=== PATIENT | female | born 1940 | race Caucasian/White ===

== ENCOUNTER 2019-09-04 21:44 | Inpatient (IN) | payer MEDICARE ==
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
[2019-09-05 01:08] LABS: Appearance,Urine Clear (Clear); Bilirubin,Urine Negative (Negative); Blood,Urine Negative (Negative); Color,Urine Light Yellow; Glucose,Urine (UA) Negative (Negative); Ketones,Urine Negative (Negative); Leukocyte Esterase,Urine Negative (Negative); Nitrite,Urine Negative (Negative); PH, Urine 5.5 (5.0-8.0); Protein,Urine Negative (Negative); Specific Gravity,Urine 1.009 (1.001-1.035); Urobilinogen,Urine <2.0 mg/dL (<2.0)
[2019-09-05 01:09] LABS: Anisocytosis Slight; Basophils % (A) 0 %; Eosinophils # (A) 0.1 k/uL (0-0.7); Eosinophils % (A) 1 %; HCT 40.3 % (34.0-46.0); Hypochromasia Moderate; Lymphocytes # (A) 0.8 k/uL (1.0-4.8); Lymphocytes % (A) 10 %; MCHC 32.2 g/dL (31.0-37.0); MCV 77.8 fL (80.0-100.0); Microcytosis Slight; Monocytes # (A) 0.5 k/uL (0-1.0); Monocytes % (A) 6 %; Neutrophils # (A) 6.4 k/uL (1.3-7.7); Neutrophils % (A) 80 %; Platelet Count 296 k/uL (150-450); RBC 5.18 m/uL (3.80-5.40); RDW 16.1 % (11.5-15.5)
[2019-09-05 01:22] LABS: Calcium 9.2 mg/dL (8.4-10.2)
--- NOTE | 2019-09-05 01:53 | XR ---
EXAMINATION TYPE: XR foot complete RT DATE OF EXAM: 09/05/2019 COMPARISON: NONE HISTORY: Second digit ulcer TECHNIQUE: 4 views FINDINGS: There is large Achilles calcaneal spur. The metatarsals are intact. There is some flexion d eformity of the PIP joints of the second and third and fourth toes. There is narrowing of the first M P joint space. I see no definite focal bone destruction.. IMPRESSION: Multiple hammertoe deformity. Mild hallux valgus. No fracture. No definite sign of osteom yelitis.
[2019-09-05 02:23] LABS: Potassium 4.5 mmol/L (3.5-5.1)
[2019-09-05] MEDS ORDERED: CEPHALEXIN 500MG STARTER PACK 4 CAP BTL PO STA (02:47)
[2019-09-05] MEDS ORDERED: SODIUM CHLORIDE 0.9% 1,000 ML IV ONE (02:48)
[2019-09-05] MEDS ORDERED: MORPHINE SULFATE 2 MG/ML SYRINGE IVP STA (08:51)
[2019-09-05] MEDS ORDERED: cefTRIAXone IN SWFI 1,000 MG/10 ML SYRINGE IVP STA (08:52)
[2019-09-05] MEDS ORDERED: DILTIAZEM DRIP BOLUS FROM BAG 1 MG SOLN IV ONE (08:52)
[2019-09-05] MEDS ORDERED: ASPIRIN 325 MG TAB PO STA (08:54)
[2019-09-05] MEDS ORDERED: SODIUM CHLORIDE 0.9% 1,000 ML IV SCH (09:00)
[2019-09-05 09:30] LABS: Albumin 3.8 g/dL (3.5-5.0); Calcium 8.9 mg/dL (8.4-10.2); Magnesium 2.1 mg/dL (1.6-2.3); Potassium 3.5 mmol/L (3.5-5.1); Total Bilirubin 0.9 mg/dL (0.2-1.3); Total Protein 6.4 g/dL (6.3-8.2)
[2019-09-05] MEDS: DILTIAZEM 125 MG in SODIUM CHLORIDE 0.9% 100 ML IV SCH (09:36)
[2019-09-05 09:42] LABS: INR 1.1 (<1.2); Partial Thromboplastin Time 23.5 sec (22.0-30.0); Prothrombin Time 11.6 sec (9.0-12.0)
--- NOTE | 2019-09-05 09:43 | XR ---
EXAMINATION TYPE: XR chest 2V DATE OF EXAM: 09/05/2019 COMPARISON: NONE HISTORY: Chest pain TECHNIQUE: Frontal and lateral views of the chest are obtained. FINDINGS: There is a [id number] left pleural effusion and associated left basilar airspace di sease. Minimal pulmonary vascular congestion is seen. Cardiomediastinal silhouette is partially obscu red but appears enlarged. There is diffuse osseous demineralization. Lower thoracic compression defor mities are age-indeterminate. Finding of the diaphragms on the lateral view suggests underlying COPD. IMPRESSION: 1. Findings of mild pulmonary vascular congestion, small to moderate left pleural effusion, and cardi omegaly favor congestive heart failure. 2. Underlying COPD. 3. Age-indeterminate lower thoracic compression deformities, correlate with point tenderness as there are no priors available for comparison to determine chronicity.
[2019-09-05 09:52] LABS: Anisocytosis Slight; Basophils % (A) 0 %; Eosinophils # (A) 0.1 k/uL (0-0.7); Eosinophils % (A) 1 %; HCT 40.9 % (34.0-46.0); HGB 12.7 gm/dL (11.4-16.0); Hypochromasia Slight; Lymphocytes # (A) 0.8 k/uL (1.0-4.8); Lymphocytes % (A) 12 %; MCH 23.6 pg (25.0-35.0); MCHC 31.1 g/dL (31.0-37.0); MCV 75.9 fL (80.0-100.0); Microcytosis Slight; Monocytes # (A) 0.4 k/uL (0-1.0); Monocytes % (A) 6 %; Neutrophils # (A) 5.1 k/uL (1.3-7.7); Neutrophils % (A) 79 %; Platelet Count 237 k/uL (150-450); RBC 5.38 m/uL (3.80-5.40); RDW 16.4 % (11.5-15.5); WBC 6.5 k/uL (3.8-10.6)
[2019-09-05] MEDS ORDERED: ACETAMINOPHEN TAB 325 MG TAB PO PRN (09:52)
[2019-09-05] MEDS ORDERED: NALOXONE 0.4 MG/ML 1 ML VIAL IV PRN ×2 (09:52→12:41)
[2019-09-05] MEDS ORDERED: HEPARIN SODIUM,PORCINE 5,000 UNIT/ML 1 ML VIAL IV ONE (09:54)
[2019-09-05] MEDS ORDERED: HEPARIN SODIUM,PORCINE 5,000 UNIT/ML 1 ML VIAL IV PRN (09:54)
[2019-09-05] MEDS ORDERED: HEPARIN SOD,PORK IN 0.45% NACL 25,000 UNIT in 0.45% NACL 1 250ML.BAG IV SCH (10:00)
[2019-09-05] MEDS ORDERED: LACTULOSE 20 GM/30 ML CUP PO PRN (12:41)
[2019-09-05] MEDS ORDERED: ONDANSETRON 4 MG/2 ML VIAL IVP PRN (12:41)
[2019-09-05] MEDS ORDERED: traMADol 50 MG TAB PO PRN (12:41)
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
--- NOTE | 2019-09-05 18:00 | ECHOF ---
Referral Reason:chf MEASUREMENTS -------- HEIGHT: 165.1 cm WEIGHT: 86.2 kg BP: 119/72 IVSd: 1.3 cm (0.6 - 1.1) LVIDd: 4.8 cm (3.9 - 5.3) LVPWd: 1.3 cm (0.6 - 1.1) IVSs: 1.8 cm LVIDs: 4.1 cm LVPWs: 1.7 cm LA Diam: 4.4 cm (2.7 - 3.8) RVIDd: 3.3 cm (< 3.3) LAESV Index (A-L): 45.36 ml/m Ao Diam: 3.0 cm (2.0 - 3.7) AV Cusp: 1.1 cm (1.5 - 2.6) EPSS: 1.3 cm AV maxP.56 mmHg AV meanP.46 mmHg RAP: 5.00 mmHg RVSP: 40.86 mmHg MV EF SLOPE: 99.68 mm/s (70 - 150) MV EXCURSION: 17.01 mm (> 18.000) FINDINGS -------- Atrial fibrillation. This was a technically adequate study. The left ventricular size is normal. There is mild concentric left ventricular hypertrophy. Overa ll left ventricular systolic function is moderate-severely impaired with, an EF between 30 - 35 %. The right ventricle is mildly enlarged. LA is severely dilated >40 ml/m2 The right atrium is normal in size. Interatrial and interventricular septum intact. There is mild to moderate aortic valve sclerosis. There is mild aortic regurgitation. There is mi ld aortic stenosis present. Peak/mean gradient across the Aortic Valve is 17.56mmHg / 10.46mmHg. The mitral valve leaflets are moderately thickened. Moderate mitral annular calcification present. Mild mitral regurgitation is present. Mild tricuspid regurgitation present. There is mild pulmonary hypertension. The right ventricular systolic pressure, as measured by Doppler, is 40.86mmHg. The pulmonic valve was not well visualized. The aortic root size is normal. Normal inferior vena cava with normal inspiratory collapse consistent with estimated right atrial pre ssure of 5 mmHg. The inferior vena cava is mildly dilated. There is no pericardial effusion. CONCLUSIONS -------- 1. Atrial fibrillation. 2. This was a technically adequate study. 3. The left ventricular size is normal. 4. There is mild concentric left ventricular hypertrophy. 5. Overall left ventricular systolic function is moderate-severely impaired with, an EF between 30 - 35 %. 6. The right ventricle is mildly enlarged. 7. LA is severely dilated >40 ml/m2 8. The right atrium is normal in size. 9. Interatrial and interventricular septum intact. 10. There is mild to moderate aortic valve sclerosis. 11. There is mild aortic regurgitation. 12. There is mild aortic stenosis present. 13. Peak/mean gradient across the Aortic Valve is 17.56mmHg / 10.46mmHg. 14. The mitral valve leaflets are moderately thickened. 15. Moderate mitral annular calcification present. 16. Mild mitral regurgitation is present. 17. Mild tricuspid regurgitation present. 18. There is mild pulmonary hypertension. 19. The right ventricular systolic pressure, as measured by Doppler, is 40.86mmHg. 20. The pulmonic valve was not well visualized. 21. The aortic root size is normal. 22. Normal inferior vena cava with normal inspiratory collapse consistent with estimated right atrial pressure of 5 mmHg. 23. The inferior vena cava is mildly dilated. 24. There is no pericardial effusion. FACTORY SUPERINTENDENT: Ivon Lin RDCS
[2019-09-06 08:14] LABS: Anisocytosis Slight; Basophils % (A) 0 %; Eosinophils # (A) 0.1 k/uL (0-0.7); Eosinophils % (A) 2 %; HGB 12.7 gm/dL (11.4-16.0); Hypochromasia Moderate; Lymphocytes # (A) 0.8 k/uL (1.0-4.8); Lymphocytes % (A) 14 %; MCH 23.9 pg (25.0-35.0); MCHC 30.9 g/dL (31.0-37.0); MCV 77.5 fL (80.0-100.0); Mean Platelet Volume 7.6; Microcytosis Slight; Monocytes # (A) 0.3 k/uL (0-1.0); Monocytes % (A) 6 %; Neutrophils # (A) 4.3 k/uL (1.3-7.7); Neutrophils % (A) 75 %; Platelet Count 245 k/uL (150-450); RBC 5.29 m/uL (3.80-5.40); WBC 5.8 k/uL (3.8-10.6)
[2019-09-06 08:30] LABS: Albumin 3.4 g/dL (3.5-5.0); Calcium 8.3 mg/dL (8.4-10.2); Magnesium 2.1 mg/dL (1.6-2.3); Phosphorus 3.3 mg/dL (2.5-4.5); Potassium 3.9 mmol/L (3.5-5.1); Total Bilirubin 0.6 mg/dL (0.2-1.3); Total Protein 6.1 g/dL (6.3-8.2)
[2019-09-06] MEDS: DILTIAZEM 125 MG in SODIUM CHLORIDE 0.9% 100 ML IV SCH (09:28)
[2019-09-06] MEDS: LISINOPRIL 5 MG TAB PO SCH (09:41)
[2019-09-06] MEDS: APIXABAN 2.5 MG TABLET PO SCH ×2 (09:41→20:57)
[2019-09-06] MEDS: METOPROLOL SUCCINATE (ER) 100 MG TAB.ER.24H PO SCH (09:41)
--- NOTE | 2019-09-06 10:24 | P.PN ---
Subjective Progress Note Date: 09/06/19 Principal diagnosis: SOB Patient stated that she has been having worsening chest pain and shortness of breath with activity over the past several months. 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 She is currently doing okay. Resting on the chair. No chest pain or shortness of breath currently. No fevers or chills last night. No nausea or vomiting. Objective - Vital Signs Vital signs: Vital Signs Temp 98.2 F 09/05/19 19:31 Pulse 90 09/06/19 04:00 Resp 18 09/06/19 04:00 BP 133/86 09/06/19 04:00 Pulse Ox 99 09/06/19 04:00 Intake & Output 09/05/19 09/06/19 09/06/19 18:59 06:59 18:59 Intake Total 1105 119.333 Balance 1105 119.333 Weight 86.183 kg 88.9 kg Intake: Intake, IV Titration 625 119.333 Amount Diltiazem 125 mg In 45 119.333 Sodium Chloride 0.9% 100 ml @ 5 MG/HR 5 mls/hr IV .Q24H [facility] Rx#:[id number] Heparin Sod,Pork in 0.45% 80 NaCl 25,000 unit In 0.45 % NaCl 1 250ml.bag @ 11.6 UNITS/KG/HR 9.997 mls/hr IV .Q24H [facility] Rx#: [id number] Sodium Chloride 0.9% 1, 400 000 ml @ 50 mls/hr IV . Q20H [facility] Rx#:[id number] ceFAZolin 1,000 mg In 100 Sodium Chloride 0.9% 50 ml @ 100 mls/hr IVPB Q6H [facility] Rx#:[id number] Oral 480 Other: # Voids 1 3 1 # Bowel Movements 1 1 - Exam Constitutional: No acute distress, conversant, pleasant Eyes:Anicteric sclerae, moist conjunctiva, no lid-lag, PERRLA, ENMT: Oropharynx clear, no erythema, exudates Neck: Supple, FROM, no masses, or JVD, No carotid bruits, No thyromegaly Lungs: Clear to auscultation, Clear to percussion, Normal respiratory effort, no accessory muscle use Cardiovascular: tachycadic, irregular, No murmurs, gallops, or rubs, No peripheral edema Abdominal: Soft, Nontender, no guarding, rebound or rigidity, Normoactive bowel sounds, No hepatomegaly, No splenomegaly, No palpable mass Skin: Normal temperature, tone, texture, turgor, no induration, No subcutaneous nodules, Bilateral lower extremity skin changes consistent with venous stasis dermtatitis. There is mild erythema to the right lower leg. Small pressure wound to the distal tip of the right second toe. Skin is otherwise pink warm and dry. Cap refills less than 3 seconds. Pedal post tibial pulses 2+ and equal bilaterally. Extremities: No digital cyanosis, No clubbing, Pedal pulses intact and symmetri alonzo, Radial pulses intact and symmetrical, No calf tenderness Psychiatric: Alert and oriented to person, place and time, appropriate affect, intact judgement Neuro: Muscles Strength 5/5 in all 4 extremities, Sensation to light touch grossly present throughout, Cranial nerves II-XII grossly intact, no focal sensory deficits - Labs CBC & Chem 7: 09/06/19 07:16 09/06/19 07:16 Labs: Abnormal Lab Results - Last 24 Hours (Table) 09/05/19 09/05/19 09/05/19 Range/Units 15:52 15:52 22:08 MCV (80.0-100.0) fL MCH (25.0-35.0) pg MCHC (31.0-37.0) g/dL RDW (11.5-15.5) % Lymphocytes # (1.0-4.8) k/uL APTT 52.0 H (22.0-30.0) sec Sodium (137-145) mmol/L BUN (7-17) mg/dL Creatinine (0.52-1.04) mg/dL Glucose (74-99) mg/dL Calcium (8.4-10.2) mg/dL Troponin I 0.056 H* 0.053 H* (0.000-0.034) ng/mL Total Protein (6.3-8.2) g/dL Albumin (3.5-5.0) g/dL 09/06/19 09/06/19 09/06/19 Range/Units 07:16 07:16 07:16 MCV 77.5 L (80.0-100.0) fL MCH 23.9 L (25.0-35.0) pg MCHC 30.9 L (31.0-37.0) g/dL RDW 16.0 H (11.5-15.5) % Lymphocytes # 0.8 L (1.0-4.8) k/uL APTT 46.3 H (22.0-30.0) sec Sodium 136 L (137-145) mmol/L BUN 27 H (7-17) mg/dL Creatinine 1.37 H (0.52-1.04) mg/dL Glucose 103 H (74-99) mg/dL Calcium 8.3 L (8.4-10.2) mg/dL Troponin I (0.000-0.034) ng/mL Total Protein 6.1 L (6.3-8.2) g/dL Albumin 3.4 L (3.5-5.0) g/dL Assessment and Plan Plan: Acute right lower extremity cellulitis Renal failure, unclear if acute or chronic, no baseline cr available Atrial fibrillation with rapid ventricular response Acute systolic CHF exacerbation HTN Continue ancef 1gm IV q6hrs Marked the upper edge of the celluitis D/C heparin, start eliquis, she does take that at home Will restart home metoprolol and try to wean down cardizem gtt Trops cycled, flat. Tele still with RVR. Echo showed low EF at 30% Awaiting cardio evaluation, consider starting DAVID inhibitor, aldactone.. Very high bnp, will start IV lasix, she does take lasix po at home. Anticipated discharge: 2-3 days Anticipated disposition: home
--- NOTE | 2019-09-06 12:41 | P.CRDCN ---
History of Present Illness Consult date: 09/06/19 Chief complaint: Increasing in shortness of breath History of present illness: This is a very pleasant 79-year-old female patient who is somewhat poor historian with a past medical history significant for obesity, paroxysmal atrial fibrillation, as well as hypertension, we asked to see today for further evaluation off atrial fibrillation with RVR. The patient does have baseline shortness of breath with exertion but she stated that for the last several weeks her shortness of breath has been increasing. Beside that she stated that she always does have lower extremity edema but her edema has been increasing as well as. She denies any symptoms of chest pain or chest discomfort, dizziness, heart racing, or syncope. No feeling of heart racing or fluttering. When she presented to the emergency room she was in atrial fibrillation with RVR. She stated that she was told in the past that she does have "irregular heart rhythm". As a matter of fact she is on oral anticoagulation. Subsequently the patient was started on Cardizem drip. Also she was started on Lasix IV. She underwent a chest x-ray which showed findings consistent with pulmonary vascular congestion. The BNP came in to be at 14,000. Clearly she does have severe [place] ateral lower extremity edema on physical examination. Beside that she does have diminished breathing sounds bilaterally on physical examination. During this hospital stay, she underwent an echocardiogram which revealed severe arterial myopathy with evidence of mild aortic stenosis. Currently the patient is on Cardizem IV. Beside that she is on Toprol-XL at 100 mg by mouth daily. Beside that she is on oral anticoagulation. Giving her cardiomyopathy, I am going to DC the Cardizem IV and start the patient on amiodarone with a bolus and drip and switch her to amiodarone down the line. I would continue the current dose of Toprol-XL at this point. We'll obtain her previous medical record to see if she underwent any coronary angiogram to rule out severe underlying coronary artery disease in the past. Please note that the troponin came in to be slightly elevated. The EKG showed atrial fibrillation with diffuse nonspecific ST and T wave abnormalities. Past Medical History Past Medical History: Dementia, Hyperlipidemia, Hypertension, Osteoarthritis (OA) Additional Past Medical History / Comment(s): right shoulder and back pain History of Any Multi-Drug Resistant Organisms: None Reported Past Surgical History: Orthopedic Surgery Past Psychological History: No Psychological Hx Reported Smoking Status: Never smoker Past Alcohol Use History: None Reported Past Drug Use History: None Reported - Past Family History Mother History Unknown: Yes Father History Unknown: Yes Medications and Allergies Home Medications Medication Instructions Recorded Confirmed Type Apixaban [Eliquis] 2.5 mg PO BID 09/05/19 09/05/19 History Cephalexin [Keflex] 500 mg PO Q6HR #40 cap 09/05/19 Rx Furosemide [Lasix] 40 mg PO AC-BID 09/05/19 09/05/19 History Lisinopril [Zestril] 5 mg PO DAILY 09/05/19 09/05/19 History Metoprolol Succinate [Toprol XL] 100 mg PO DAILY 09/05/19 09/05/19 History Allergies Allergy/AdvReac Type Severity Reaction Status Date / Time No Known Allergies Allergy Verified 09/05/19 19:13 Physical Exam Vitals: Vital Signs Temp Pulse Resp BP Pulse Ox 09/06/19 04:00 90 18 133/86 99 09/06/19 00:00 100 16 126/72 96 09/05/19 19:31 98.2 F 107 H 18 136/67 97 09/05/19 17:55 97.7 F 113 H 18 144/81 95 09/05/19 16:00 97.6 F 112 H 20 110/71 99 Intake and Output 09/05/19 09/06/19 09/06/19 22:59 06:59 14:59 Intake Total 1105 119.333 Balance 1105 119.333 Intake: Intake, IV Titration 625 119.333 Amount Diltiazem 125 mg In 45 119.333 Sodium Chloride 0.9% 100 ml @ 5 MG/HR 5 mls/hr IV .Q24H [facility] Rx#:[id number] Heparin Sod,Pork in 0.45% 80 NaCl 25,000 unit In 0.45 % NaCl 1 250ml.bag @ 11.6 UNITS/KG/HR 9.997 mls/hr IV .Q24H [facility] Rx#: [id number] Sodium Chloride 0.9% 1, 400 000 ml @ 50 mls/hr IV . Q20H [facility] Rx#:[id number] ceFAZolin 1,000 mg In 100 Sodium Chloride 0.9% 50 ml @ 100 mls/hr IVPB Q6H [facility] Rx#:[id number] Oral 480 Other: # Voids 1 3 1 # Bowel Movements 1 Weight 86.183 kg 88.9 kg - Constitutional General appearance: no acute distress - Respiratory Respiratory: bilateral: diminished - Cardiovascular Rhythm: irregularly irregular Heart sounds: normal: S1, S2 Abnormal Heart Sounds: systolic murmur Results 09/06/19 07:16 09/06/19 07:16 Cardiac Enzymes 09/05/19 09/05/19 09/06/19 Range/Units 15:52 22:08 07:16 AST 19 (14-36) U/L Troponin I 0.056 H* 0.053 H* (0.000-0.034) ng/mL Coagulation 09/05/19 09/06/19 Range/Units 15:52 07:16 APTT 52.0 H 46.3 H (22.0-30.0) sec CBC 09/06/19 Range/Units 07:16 WBC 5.8 (3.8-10.6) k/uL RBC 5.29 (3.80-5.40) m/uL Hgb 12.7 (11.4-16.0) gm/dL Hct 41.0 (34.0-46.0) % Plt Count 245 (150-450) k/uL Comprehensive Metabolic Panel 09/06/19 Range/Units 07:16 Sodium 136 L (137-145) mmol/L Potassium 3.9 (3.5-5.1) mmol/L Chloride 102 (98-107) mmol/L Carbon Dioxide 26 (22-30) mmol/L BUN 27 H (7-17) mg/dL Creatinine 1.37 H (0.52-1.04) mg/dL Glucose 103 H (74-99) mg/dL Calcium 8.3 L (8.4-10.2) mg/dL AST 19 (14-36) U/L ALT 15 (4-34) U/L Alkaline Phosphatase 81 (38-126) U/L Total Protein 6.1 L (6.3-8.2) g/dL Albumin 3.4 L (3.5-5.0) g/dL Current Medications Generic Name Dose Route Start Last Admin Trade Name Freq PRN Reason Stop Dose Admin Acetaminophen 650 mg 09/05/19 09:52 Tylenol Tab PO Q6HR PRN Mild Pain or Fever > 100.5 Apixaban 2.5 mg 09/06/19 09:00 09/06/19 09:41 Eliquis PO 2.5 mg BID [facility] Administration Furosemide 40 mg 09/06/19 10:30 Lasix IV Q12HR [facility] Diltiazem HCl 125 mg/ Sodium 125 mls @ 5 mls/hr 09/05/19 09:00 09/06/19 09:28 Chloride IV 5 mg/hr .Q24H [facility] 5 mls/hr Administration 5 MG/HR Cefazolin Sodium 1,000 mg/ 50 mls @ 100 mls/hr 09/05/19 14:00 09/06/19 09:38 Sodium Chloride IVPB 100 mls/hr Q6H [facility] Administration Lactulose 20 gm 09/05/19 12:41 Cephulac PO DAILY PRN Constipation Lisinopril 5 mg 09/06/19 09:00 09/06/19 09:41 Zestril PO 5 mg DAILY [facility] Administration Metoprolol Succinate 100 mg 09/06/19 09:00 09/06/19 09:41 Toprol Xl PO 100 mg DAILY [facility] Administration Naloxone HCl 0.2 mg 09/05/19 12:41 Narcan IV Q2M PRN Opioid Reversal Ondansetron HCl 4 mg 09/05/19 12:41 Zofran IVP Q8HR PRN Nausea And Vomiting Tramadol HCl 50 mg 09/05/19 12:41 Ultram PO Q6H PRN Moderate Pain Intake and Output 09/05/19 09/06/19 09/06/19 22:59 06:59 14:59 Intake Total 1105 119.333 Balance 1105 119.333 Intake: Intake, IV Titration 625 119.333 Amount Diltiazem 125 mg In 45 119.333 Sodium Chloride 0.9% 100 ml @ 5 MG/HR 5 mls/hr IV .Q24H [facility] Rx#:[id number] Heparin Sod,Pork in 0.45% 80 NaCl 25,000 unit In 0.45 % NaCl 1 250ml.bag @ 11.6 UNITS/KG/HR 9.997 mls/hr IV .Q24H [facility] Rx#: [id number] Sodium Chloride 0.9% 1, 400 000 ml @ 50 mls/hr IV . Q20H [facility] Rx#:[id number] ceFAZolin 1,000 mg In 100 Sodium Chloride 0.9% 50 ml @ 100 mls/hr IVPB Q6H [facility] Rx#:[id number] Oral 480 Other: # Voids 1 3 1 # Bowel Movements 1 Weight 86.183 kg 88.9 kg 09/06/19 07:16 09/06/19 07:16 Assessment and Plan Assessment: Assessment #1 atrial fibrillation with RVR #2 known paroxysmal atrial fibrillation #3 severe cardiomyopathy #4 mildly abnormal cardiac enzymes #5 morbid obesity #6 multiple comorbid conditions Plan #1 continue the current medical regimen #2 DC Cardizem IV and start the patient on amiodarone IV #3 continue oral anticoagulation #4 obtain her previous medical record #5 rule out severe coronary artery disease #6 follow-up with the patient Thank you for allowing us participate in her care
[2019-09-06] MEDS ORDERED: DEXTROSE 5% IN WATER 100 ML with AMIODARONE 150 MG IV ONE (14:33)
[2019-09-06] MEDS ORDERED: AMIODARONE 360 MG in DEXTROSE 5% IN WATER 200 ML IV ONE ×2 (14:33)
[2019-09-06] MEDS ORDERED: FUROSEMIDE 40 MG TAB PO SCH (17:30)
[2019-09-06] MEDS: FUROSEMIDE 10 MG/ML 4 ML VIAL IV SCH ×2 (18:28→20:55)
[2019-09-06] MEDS: AMIODARONE 300 MG in DEXTROSE 5% IN WATER 250 ML IV SCH ×2 (20:57)
[2019-09-07] MEDS: AMIODARONE 300 MG in DEXTROSE 5% IN WATER 250 ML IV SCH ×2 (07:12)
[2019-09-07 07:33] LABS: Anisocytosis Slight; Basophils % (A) 0 %; Eosinophils # (A) 0.1 k/uL (0-0.7); Eosinophils % (A) 2 %; HCT 42.8 % (34.0-46.0); Hypochromasia Marked; Lymphocytes % (A) 15 %; MCH 24.2 pg (25.0-35.0); MCHC 30.5 g/dL (31.0-37.0); MCV 79.4 fL (80.0-100.0); Mean Platelet Volume 7.5; Microcytosis Slight; Monocytes # (A) 0.5 k/uL (0-1.0); Monocytes % (A) 7 %; Neutrophils # (A) 4.9 k/uL (1.3-7.7); Neutrophils % (A) 74 %; Platelet Count 269 k/uL (150-450); RBC 5.39 m/uL (3.80-5.40); RDW 16.1 % (11.5-15.5); WBC 6.7 k/uL (3.8-10.6)
[2019-09-07 08:03] LABS: Calcium 8.8 mg/dL (8.4-10.2); Magnesium 2.3 mg/dL (1.6-2.3); Phosphorus 3.6 mg/dL (2.5-4.5); Potassium 4.7 mmol/L (3.5-5.1)
[2019-09-07] MEDS: LISINOPRIL 5 MG TAB PO SCH (08:50)
[2019-09-07] MEDS: METOPROLOL SUCCINATE (ER) 100 MG TAB.ER.24H PO SCH (08:51)
[2019-09-07] MEDS: FUROSEMIDE 10 MG/ML 4 ML VIAL IV SCH ×2 (08:51→21:50)
[2019-09-07] MEDS: APIXABAN 2.5 MG TABLET PO SCH ×2 (08:51→21:50)
--- NOTE | 2019-09-07 11:16 | P.PN ---
Subjective Progress Note Date: 09/07/19 Principal diagnosis: SOB Feeling better today, the redness and pain in her right leg is almost resolved. No significant sob while laying in bed. No chest pain. No fevers. Objective - Vital Signs Vital signs: Vital Signs Temp 97.8 F 09/07/19 08:50 Pulse 95 09/07/19 08:50 Resp 18 09/07/19 08:50 BP 141/98 09/07/19 08:50 Pulse Ox 93 L 09/07/19 08:50 Intake & Output 09/06/19 09/07/19 09/07/19 18:59 06:59 18:59 Intake Total 359.333 890 240 Output Total 900 500 Balance 359.333 -10 -260 Weight 93 kg Intake: Intake, IV Titration 119.333 450 Amount Amiodarone 300 mg In 450 Dextrose 5% in Water 250 ml @ 0.5 MG/MIN 25 mls/hr IV .Q10H [facility] Rx#: [id number] Diltiazem 125 mg In 119.333 Sodium Chloride 0.9% 100 ml @ 5 MG/HR 5 mls/hr IV .Q24H [facility] Rx#:[id number] Oral 240 440 240 Output: Urine 900 500 Other: # Voids 1 2 # Bowel Movements 1 1 - Exam Constitutional: No acute distress, conversant, pleasant Eyes:Anicteric sclerae, moist conjunctiva, no lid-lag, PERRLA, ENMT: Oropharynx clear, no erythema, exudates Neck: Supple, FROM, no masses, or JVD, No carotid bruits, No thyromegaly Lungs: Clear to auscultation, Clear to percussion, Normal respiratory effort, no accessory muscle use Cardiovascular: tachycadic, irregular, No murmurs, gallops, or rubs, No peripheral edema Abdominal: Soft, Nontender, no guarding, rebound or rigidity, Normoactive bowel sounds, No hepatomegaly, No splenomegaly, No palpable mass Skin: Normal temperature, tone, texture, turgor, no induration, No subcutaneous nodules, Bilateral lower extremity skin changes consistent with venous stasis dermtatitis. There is mild erythema to the right lower leg. Small pressure wound to the distal tip of the right second toe. Skin is otherwise pink warm and dry. Cap refills less than 3 seconds. Pedal post tibial pulses 2+ and equal bilaterally. Extremities: No digital cyanosis, No clubbing, Pedal pulses intact and symmetrical, Radial pulses intact and symmetrical, No calf tenderness Psychiatric: Alert and oriented to person, place and time, appropriate affect, intact judgement Neuro: Muscles Strength 5/5 in all 4 extremities, Sensation to light touch grossly present throughout, Cranial nerves II-XII grossly intact, no focal sensory deficits - Labs CBC & Chem 7: 09/07/19 06:50 09/07/19 06:50 Labs: Abnormal Lab Results - Last 24 Hours (Table) 09/07/19 09/07/19 Range/Units 06:50 06:50 MCV 79.4 L (80.0-100.0) fL MCH 24.2 L (25.0-35.0) pg MCHC 30.5 L (31.0-37.0) g/dL RDW 16.1 H (11.5-15.5) % Sodium 133 L (137-145) mmol/L BUN 32 H (7-17) mg/dL Creatinine 1.33 H (0.52-1.04) mg/dL Glucose 119 H (74-99) mg/dL Assessment and Plan Plan: Acute right lower extremity cellulitis Renal failure, unclear if acute or chronic, no baseline cr available Atrial fibrillation with rapid ventricular response Acute systolic CHF exacerbation, echo showed low EF at 30% HTN Continue ancef 1gm IV q6hrs, cellulitis improved. Continue eliquis Resume home metoprolol, started on amiodarone by cardioelba d/anastacia due to low EF Continue home lisinopril, Lasix IV D/W cardiology the need for further ischemia evaluation with heart cath, to better investigate low EF Continue on tele Anticipated discharge: 2-3 days Anticipated disposition: home
--- NOTE | 2019-09-07 13:46 | P.PN ---
Subjective Progress Note Date: 09/07/19 This is a very pleasant 79-year-old female patient who is somewhat poor historian with a past medical history significant for obesity, paroxysmal atrial fibrillation, as well as hypertension, we asked to see today for further evaluation off atrial fibrillation with RVR. The patient does have baseline margo rtness of breath with exertion but she stated that for the last several weeks her shortness of breath has been increasing. Beside that she stated that she always does have lower extremity edema but her edema has been increasing as well as. She denies any symptoms of chest pain or chest discomfort, dizziness, heart racing, or syncope. No feeling of heart racing or fluttering. When she presented to the emergency room she was in atrial fibrillation with RVR. She stated that she was told in the past that she does have "irregular heart rhythm". As a matter of fact she is on oral anticoagulation. Subsequently the patient was started on Cardizem drip. Also she was started on Lasix IV. She underwent a chest x-ray which showed findings consistent with pulmonary vascular congestion. The BNP came in to be at 14,000. Clearly she does have severe bilateral lower extremity edema on physical examination. Beside that she does have diminished breathing sounds bilaterally on physical examination. During this hospital stay, she underwent an echocardiogram which revealed severe arterial myopathy with evidence of mild aortic stenosis. Currently the patient is on Cardizem IV. Beside that she is on Toprol-XL at 100 mg by mouth daily. Beside that she is on oral anticoagulation. Giving her cardiomyopathy, I am going to DC the Cardizem IV and start the patient on amiodarone with a bolus and drip and switch her to amiodarone down the line. I would continue the current dose of Toprol-XL at this point. We'll obtain her previous medical record to see if she underwent any coronary angiogram to rule out severe underlying coronary artery disease in the past. Please note that the troponin came in to be slightly elevated. The EKG showed atrial fibrillation with diffuse nonspecific ST and T wave abnormalities. 09/07/2019 Patient was seen and examined this morning, continues to be on IV amiodarone, we will switch her over to oral once the 24 hours is finished. Continues to diure se on the IV Lasix. Blood pressure 140/90, heart rate in the 90s, 93% on room air. White blood cell count 6.7, hemoglobin 13, platelet count 269. Sodium 133, potassium 4.7, BUN 32, creatinine 1.3, magnesium 2.3. Echocardiogram with Doppler study showed an ejection fraction of 30-35%, patient not a candidate for any coronary procedures, we'll maximize her medications. Objective - Vital Signs Vital signs: Vital Signs Temp 97.8 F 09/07/19 08:50 Pulse 95 09/07/19 08:50 Resp 18 09/07/19 08:50 BP 141/98 09/07/19 08:50 Pulse Ox 93 L 09/07/19 08:50 Intake & Output 09/06/19 09/07/19 09/07/19 18:59 06:59 18:59 Intake Total 359.333 890 240 Output Total 900 500 Balance 359.333 -10 -260 Weight 93 kg Intake: Intake, IV Titration 119.333 450 Amount Amiodarone 300 mg In 450 Dextrose 5% in Water 250 ml @ 0.5 MG/MIN 25 mls/hr IV .Q10H [facility] Rx#: [id number] Diltiazem 125 mg In 119.333 Sodium Chloride 0.9% 100 ml @ 5 MG/HR 5 mls/hr IV .Q24H [facility] Rx#:[id number] Oral 240 440 240 Output: Urine 900 500 Other: # Voids 1 2 # Bowel Movements 1 1 - Exam Constitutional: No acute distress, conversant, pleasant Eyes:Anicteric sclerae, moist conjunctiva, no lid-lag, PERRLA, ENMT: Oropharynx clear, no erythema, exudates Neck: Supple, FROM, no masses, or JVD, No carotid bruits, No thyromegaly Lungs: Clear to auscultation, Clear to percussion, Normal respiratory effort, no accessory muscle use Cardiovascular: tachycadic, irregular, No murmurs, gallops, or rubs, No peripheral edema Abdominal: Soft, Nontender, no guarding, rebound or rigidity, Normoactive bowel sounds, No hepatomegaly, No splenomegaly, No palpable mass Skin: Normal temperature, tone, texture, turgor, no induration, No subcutaneous nodules, Bilateral lower extremity skin changes consistent with venous stasis dermtatitis. There is mild erythema to the right lower leg. Small pressure wound to the distal tip of the right second toe. Skin is otherwise pink warm and dry. Cap refills less than 3 seconds. Pedal post tibial pulses 2+ and equal bilaterally. Extremities: No digital cyanosis, No clubbing, Pedal pulses intact and symmetrical, Radial pulses intact and symmetrical, No calf tenderness Psychiatric: Alert and oriented to person, place and time, appropriate affect, i ntact judgement Neuro: Muscles Strength 5/5 in all 4 extremities, Sensation to light touch grossly present throughout, Cranial nerves II-XII grossly intact, no focal sensory deficits - Labs CBC & Chem 7: 09/07/19 06:50 09/07/19 06:50 Labs: Abnormal Lab Results - Last 24 Hours (Table) 09/07/19 09/07/19 Range/Units 06:50 06:50 MCV 79.4 L (80.0-100.0) fL MCH 24.2 L (25.0-35.0) pg MCHC 30.5 L (31.0-37.0) g/dL RDW 16.1 H (11.5-15.5) % Sodium 133 L (137-145) mmol/L BUN 32 H (7-17) mg/dL Creatinine 1.33 H (0.52-1.04) mg/dL Glucose 119 H (74-99) mg/dL Assessment and Plan Plan: Assessment and plan #1 atrial fibrillation with RVR, persistent #2 multiple comorbid conditions #3 severe cardiomyopathy #4 mildly abnormal cardiac enzymes #5 morbid obesity Plan Once the IV amiodarone has infused we will start the patient on oral amiodarone. Continue current dose of IV Lasix. DNP note has been reviewed, I agree with a documented findings and plan of care. Patient was seen and examined.
[2019-09-07] MEDS: AMIODARONE 200 MG TAB PO SCH ×2 (16:15→21:50)
[2019-09-07] MEDS ORDERED: QUEtiapine 50 MG TAB PO ONE (21:00)
[2019-09-08 07:14] LABS: Anisocytosis Slight; Basophils % (A) 1 %; Eosinophils # (A) 0.1 k/uL (0-0.7); Eosinophils % (A) 1 %; HCT 42.8 % (34.0-46.0); HGB 13.7 gm/dL (11.4-16.0); Hypochromasia Moderate; Lymphocytes # (A) 0.9 k/uL (1.0-4.8); Lymphocytes % (A) 13 %; MCHC 31.9 g/dL (31.0-37.0); MCV 78.3 fL (80.0-100.0); Mean Platelet Volume 7.6; Microcytosis Slight; Monocytes # (A) 0.4 k/uL (0-1.0); Monocytes % (A) 6 %; Neutrophils # (A) 5.5 k/uL (1.3-7.7); Neutrophils % (A) 78 %; Platelet Count 207 k/uL (150-450); RBC 5.47 m/uL (3.80-5.40); RDW 16.1 % (11.5-15.5); WBC 7.1 k/uL (3.8-10.6)
[2019-09-08] MEDS: APIXABAN 2.5 MG TABLET PO SCH ×2 (09:18→21:08)
[2019-09-08] MEDS: METOPROLOL SUCCINATE (ER) 100 MG TAB.ER.24H PO SCH (09:18)
[2019-09-08] MEDS: FUROSEMIDE 10 MG/ML 4 ML VIAL IV SCH ×2 (09:18→21:08)
[2019-09-08] MEDS: AMIODARONE 200 MG TAB PO SCH ×3 (09:18→21:08)
[2019-09-08] MEDS: LISINOPRIL 5 MG TAB PO SCH (09:18)
--- NOTE | 2019-09-08 11:52 | P.PN ---
Subjective Progress Note Date: 09/08/19 This is a very pleasant 79-year-old female patient who is somewhat poor historian with a past medical history significant for obesity, paroxysmal atrial fibrillation, as well as hypertension, we asked to see today for further evaluation off atrial fibrillation with RVR. The patient does have baseline margo rtness of breath with exertion but she stated that for the last several weeks her shortness of breath has been increasing. Beside that she stated that she always does have lower extremity edema but her edema has been increasing as well as. She denies any symptoms of chest pain or chest discomfort, dizziness, heart racing, or syncope. No feeling of heart racing or fluttering. When she presented to the emergency room she was in atrial fibrillation with RVR. She stated that she was told in the past that she does have "irregular heart rhythm". As a matter of fact she is on oral anticoagulation. Subsequently the patient was started on Cardizem drip. Also she was started on Lasix IV. She underwent a chest x-ray which showed findings consistent with pulmonary vascular congestion. The BNP came in to be at 14,000. Clearly she does have severe bilateral lower extremity edema on physical examination. Beside that she does have diminished breathing sounds bilaterally on physical examination. During this hospital stay, she underwent an echocardiogram which revealed severe arterial myopathy with evidence of mild aortic stenosis. Currently the patient is on Cardizem IV. Beside that she is on Toprol-XL at 100 mg by mouth daily. Beside that she is on oral anticoagulation. Giving her cardiomyopathy, I am going to DC the Cardizem IV and start the patient on amiodarone with a bolus and drip and switch her to amiodarone down the line. I would continue the current dose of Toprol-XL at this point. We'll obtain her previous medical record to see if she underwent any coronary angiogram to rule out severe underlying coronary artery disease in the past. Please note that the troponin came in to be slightly elevated. The EKG showed atrial fibrillation with diffuse nonspecific ST and T wave abnormalities. 09/07/2019 Patient was seen and examined this morning, continues to be on IV amiodarone, we will switch her over to oral once the 24 hours is finished. Continues to diure se on the IV Lasix. Blood pressure 140/90, heart rate in the 90s, 93% on room air. White blood cell count 6.7, hemoglobin 13, platelet count 269. Sodium 133, potassium 4.7, BUN 32, creatinine 1.3, magnesium 2.3. Echocardiogram with Doppler study showed an ejection fraction of 30-35%, patient not a candidate for any coronary procedures, we'll maximize her medications. 09/08/2019 Patient seen and examined this morning, hemodynamically stable. Blood pressure 146/90 with a heart rate in the 90s today, she is on oral amiodarone. White blood cell count 7.1, hemoglobin 13.7, platelet count 207. Objective - Vital Signs Vital signs: Vital Signs Temp 98.1 F 09/08/19 08:00 Pulse 97 09/08/19 08:00 Resp 20 09/08/19 08:00 BP 120/72 09/08/19 08:00 Pulse Ox 92 L 09/08/19 08:00 Intake & Output 09/07/19 09/08/19 09/08/19 18:59 06:59 18:59 Intake Total 720 340 Output Total 1300 450 Balance -580 -110 Weight 88 kg Intake: Intake, IV Titration 100 Amount ceFAZolin 1,000 mg In 100 Sodium Chloride 0.9% 50 ml @ 100 mls/hr IVPB Q12HR [facility] Rx#:[id number] Oral 720 240 Output: Urine 1300 450 Other: # Voids 1 # Bowel Movements 1 1 - Exam Constitutional: No acute distress, conversant, pleasant Eyes:Anicteric sclerae, moist conjunctiva, no lid-lag, PERRLA, ENMT: Oropharynx clear, no erythema, exudates Neck: Supple, FROM, no masses, or JVD, No carotid bruits, No thyromegaly Lungs: Clear to auscultation, Clear to percussion, Normal respiratory effort, no accessory muscle use Cardiovascular: tachycadic, irregular, No murmurs, gallops, or rubs, No peripheral edema Abdominal: Soft, Nontender, no guarding, rebound or rigidity, Normoactive bowel sounds, No hepatomegaly, No splenomegaly, No palpable mass Skin: Normal temperature, tone, texture, turgor, no induration, No subcutaneous nodules, Bilateral lower extremity skin changes consistent with venous stasis dermtatitis. There is mild erythema to the right lower leg. Small pressure wound to the distal tip of the right second toe. Skin is otherwise pink warm and dry. Cap refills less than 3 seconds. Pedal post tibial pulses 2+ and equal bilaterally. Extremities: No digital cyanosis, No clubbing, Pedal pulses intact and symmetrical, Radial pulses intact and symmetrical, No calf tenderness Psychiatric: Alert and oriented to person, place and time, appropriate affect, intact judgement Neuro: Muscles Strength 5/5 in all 4 extremities, Sensation to light touch grossly present throughout, Cranial nerves II-XII grossly intact, no focal sensory deficits - Labs CBC & Chem 7: 09/08/19 05:23 09/07/19 06:50 Labs: Abnormal Lab Results - Last 24 Hours (Table) 09/08/19 Range/Units 05:23 RBC 5.47 H (3.80-5.40) m/uL MCV 78.3 L (80.0-100.0) fL RDW 16.1 H (11.5-15.5) % Lymphocytes # 0.9 L (1.0-4.8) k/uL Assessment and Plan Plan: Assessment and plan #1 atrial fibrillation with RVR, persistent #2 multiple comorbid conditions #3 severe cardiomyopathy #4 mildly abnormal cardiac enzymes #5 morbid obesity Plan From cardiology's perspective, we would recommend to continue this patient on her current medications. She may be discharged home once cleared by primary. DNP note has been reviewed, I agree with a documented findings and plan of care. Patient was seen and examined.
--- NOTE | 2019-09-08 16:23 | P.PN ---
Subjective Progress Note Date: 09/08/19 Principal diagnosis: A. yandel with RVR, CHF exacerbation Patient was seen and examined. No acute events overnight. Patient reports improvement in her lower extremity swelling and erythema. She also reports improvement in her breathing but states that she gets winded when she walks from her bed to the washroom. [place] She does get help from her nephew at times. She denies any chest pain or palpitations. No nausea or vomiting. No fever or chills. Objective - Vital Signs Vital signs: Vital Signs Temp 98.1 F 09/08/19 08:00 Pulse 97 09/08/19 08:00 Resp 20 09/08/19 08:00 BP 120/72 09/08/19 08:00 Pulse Ox 92 L 09/08/19 08:00 Intake & Output 09/07/19 09/08/19 09/08/19 18:59 06:59 18:59 Intake Total 720 340 200 Output Total 1300 450 Balance -580 -110 200 Weight 88 kg Intake: Intake, IV Titration 100 Amount ceFAZolin 1,000 mg In 100 Sodium Chloride 0.9% 50 ml @ 100 mls/hr IVPB Q12HR [facility] Rx#:[id number] Oral 720 240 200 Output: Urine 1300 450 Other: # Voids 1 # Bowel Movements 1 1 - Exam General: [non toxic], [no distress], [appears at stated age] Derm: [warm], [dry] Head: [atraumatic], [normocephalic], [symmetric] Eyes: [EOMI], [no lid lag], [anicteric sclera] Mouth: [no lip lesion], [mucus membranes moist] Cardiovascular: [S1S2 irregular], [no murmur], [positive DP pulse bilateral], Lungs: [CTA bilateral], [no rhonchi, no rales] , [no accessory muscle use] Abdominal: [soft], [ nontender to palpation], [no guarding], [no appreciable organomegaly] Ext: [no gross muscle atrophy], [1+ LE edema with bilateral erythema], [no contractures] Neuro: [no focal neuro deficits] Psych: [Alert], [oriented], [appropriate affect] - Labs CBC & Chem 7: 09/08/19 05:23 09/07/19 06:50 Labs: Abnormal Lab Results - Last 24 Hours (Table) 09/08/19 Range/Units 05:23 RBC 5.47 H (3.80-5.40) m/uL MCV 78.3 L (80.0-100.0) fL RDW 16.1 H (11.5-15.5) % Lymphocytes # 0.9 L (1.0-4.8) k/uL Assessment and Plan Assessment: Right lower extremity cellulitis Atrial fibrillation with RVR Acute systolic CHF exacerbation Elevated creatinine with unknown baseline Troponin elevation Cellulitis appears to be improving. Patient is afebrile with no leukocytosis. Plans: Continue Ancef. Transition oral antibiotics for discharge. Heart rate irregular around 100 on telemetry. Plans: Patient started on amiodarone by mouth. Eliquis for anticoagulation. Continue home medication of metoprolol. Keep potassium greater than 4 and magnesium greater than 2. Telemetry monitoring. Follow cardiology consultation. BNP 14,700 with chest x-ray showing pulmonary vascular congestion. Echocardiogram shows EF 30-35% with mild concentric LVH. Plans: Continue Lasix 40 mg IV twice a day. Continue beta jason. Continue DAVID inhibitor. Strict intake and output. Daily weights. Creatinine 1.33. Unknown baseline. Suspect component of chronic kidney disease. Plans: Repeat BMP tomorrow morning. Avoid nephrotoxins. Troponin 0.067, 0.056, 0.053 with EKG showing atrial fibrillation with RVR. Possible demand ischemia. Troponins flat. Acute coronary syndrome ruled out. [Patient admitted for CHF exacerbation and A. fib with RVR. Needs better rate control. Also getting treatment for cellulitis. She is pending clinical improvement. Likely DC in 1-2 days.]
[2019-09-08 23:31] VITALS: RESP 16
[2019-09-09 08:09] VITALS: TEMP 97.7
[2019-09-09] MEDS: FUROSEMIDE 10 MG/ML 4 ML VIAL IV SCH (08:10)
[2019-09-09] MEDS: APIXABAN 2.5 MG TABLET PO SCH (08:10)
[2019-09-09] MEDS: AMIODARONE 200 MG TAB PO SCH (08:10)
[2019-09-09] MEDS: METOPROLOL SUCCINATE (ER) 100 MG TAB.ER.24H PO SCH (08:10)
[2019-09-09] MEDS: LISINOPRIL 5 MG TAB PO SCH (08:10)
--- NOTE | 2019-09-09 09:53 | XR ---
EXAMINATION TYPE: XR chest 1V portable DATE OF EXAM: 09/09/2019 Comparison: 09/05/2019 Clinical History: 79-year-old female CHF Findings: Heart mildly enlarged. Moderate left and small right pleural effusions with bibasilar opacities. Uppe r lungs are relatively clear. Impression: Moderate left and small right pleural effusions with prominent adjacent atelectasis and/or consolidat ion, increased in the interval.
[2019-09-09 10:08] LABS: Potassium 4.5 mmol/L (3.5-5.1)
[2019-09-09 12:00] VITALS: BP 123/90; PULSE 82
--- NOTE | 2019-09-09 12:27 | P.PN ---
Subjective Progress Note Date: 09/09/19 This is a very pleasant 79-year-old female patient who is somewhat poor historian with a past medical history significant for obesity, paroxysmal atrial fibrillation, as well as hypertension, we asked to see today for further evaluation off atrial fibrillation with RVR. The patient does have baseline margo rtness of breath with exertion but she stated that for the last several weeks her shortness of breath has been increasing. Beside that she stated that she always does have lower extremity edema but her edema has been increasing as well as. She denies any symptoms of chest pain or chest discomfort, dizziness, heart racing, or syncope. No feeling of heart racing or fluttering. When she presented to the emergency room she was in atrial fibrillation with RVR. She stated that she was told in the past that she does have "irregular heart rhythm". As a matter of fact she is on oral anticoagulation. Subsequently the patient was started on Cardizem drip. Also she was started on Lasix IV. She underwent a chest x-ray which showed findings consistent with pulmonary vascular congestion. The BNP came in to be at 14,000. Clearly she does have severe bilateral lower extremity edema on physical examination. Beside that she does have diminished breathing sounds bilaterally on physical examination. During this hospital stay, she underwent an echocardiogram which revealed severe arterial myopathy with evidence of mild aortic stenosis. Currently the patient is on Cardizem IV. Beside that she is on Toprol-XL at 100 mg by mouth daily. Beside that she is on oral anticoagulation. Giving her cardiomyopathy, I am going to DC the Cardizem IV and start the patient on amiodarone with a bolus and drip and switch her to amiodarone down the line. I would continue the current dose of Toprol-XL at this point. We'll obtain her previous medical record to see if she underwent any coronary angiogram to rule out severe underlying coronary artery disease in the past. Please note that the troponin came in to be slightly elevated. The EKG showed atrial fibrillation with diffuse nonspecific ST and T wave abnormalities. 09/07/2019 Patient was seen and examined this morning, continues to be on IV amiodarone, we will switch her over to oral once the 24 hours is finished. Continues to diure se on the IV Lasix. Blood pressure 140/90, heart rate in the 90s, 93% on room air. White blood cell count 6.7, hemoglobin 13, platelet count 269. Sodium 133, potassium 4.7, BUN 32, creatinine 1.3, magnesium 2.3. Echocardiogram with Doppler study showed an ejection fraction of 30-35%, patient not a candidate for any coronary procedures, we'll maximize her medications. 09/08/2019 Patient seen and examined this morning, hemodynamically stable. Blood pressure 146/90 with a heart rate in the 90s today, she is on oral amiodarone. White blood cell count 7.1, hemoglobin 13.7, platelet count 207. 09/09/2019 Patient seen and examined this morning, hemodynamically stable, blood pressure 148/80 with a heart rate in the 80s. Sodium 135, potassium 4.5, BUN 46, creatinine 1.6. Objective - Vital Signs Vital signs: Vital Signs Temp 97.7 F 09/09/19 07:50 Pulse 82 09/09/19 11:10 Resp 16 09/09/19 11:10 BP 123/90 09/09/19 11:10 Pulse Ox 97 09/09/19 11:10 Intake & Output 09/08/19 09/09/19 09/09/19 18:59 06:59 18:59 Intake Total 400 450 570 Output Total 500 800 550 Balance -100 -350 20 Intake: Oral 400 450 570 Output: Urine 500 800 550 Other: Voiding Method Toilet Toilet # Voids 1 - Exam Constitutional: No acute distress, conversant, pleasant Eyes:Anicteric sclerae, moist conjunctiva, no lid-lag, PERRLA, ENMT: Oropharynx clear, no erythema, exudates Neck: Supple, FROM, no masses, or JVD, No carotid bruits, No thyromegaly Lungs: Clear to auscultation, Clear to percussion, Normal respiratory effort, no accessory muscle use Cardiovascular: tachycadic, irregular, No murmurs, gallops, or rubs, No peripheral edema Abdominal: Soft, Nontender, no guarding, rebound or rigidity, Normoactive bowel sounds, No hepatomegaly, No splenomegaly, No palpable mass Skin: Normal temperature, tone, texture, turgor, no induration, No subcutaneous nodules, Bilateral lower extremity skin changes consistent with venous stasis dermtatitis. There is mild erythema to the right lower leg. Small pressure wound to the distal tip of the right second toe. Skin is otherwise pink warm and dry. Cap refills less than 3 seconds. Pedal post tibial pulses 2+ and equal bilaterally. Extremities: No digital cyanosis, No clubbing, Pedal pulses intact and symmetrical, Radial pulses intact and symmetrical, No calf tenderness Psychiatric: Alert and oriented to person, place and time, appropriate affect, intact judgement Neuro: Muscles Strength 5/5 in all 4 extremities, Sensation to light touch grossly present throughout, Cranial nerves II-XII grossly intact, no focal sensory deficits - Labs CBC & Chem 7: 09/08/19 05:23 09/09/19 09:01 Labs: Abnormal Lab Results - Last 24 Hours (Table) 09/09/19 Range/Units 09:01 Sodium 135 L (137-145) mmol/L Chloride 95 L (98-107) mmol/L BUN 46 H (7-17) mg/dL Creatinine 1.68 H (0.52-1.04) mg/dL Assessment and Plan Plan: Assessment and plan #1 atrial fibrillation with RVR, persistent #2 multiple comorbid conditions #3 severe cardiomyopathy #4 mildly abnormal cardiac enzymes #5 morbid obesity Plan From cardiology's perspective, we would recommend to continue this patient on her current medications. She may be discharged home once cleared by primary. We will follow this patient along with you now on an as-needed basis only, please don't hesitate to call with any questions. DNP note has been reviewed, I agree with a documented findings and plan of care. Patient was seen and examined.
--- NOTE | 2019-09-09 18:06 | P.DS ---
Providers Date of admission: 09/05/19 09:52 Expected date of discharge: 09/09/19 Attending physician: Ashley Mendieta MD Consults: 09/05/19 09:52 Consult Physician Routine Consulting Provider: Cortez Swenson Consult Reason/Comments: New-onset atrial fibrillation with RVR Do you want consulting provider notified?: Yes Primary care physician: Stated None Hospital Course: Patient is an 79-year-old female with PMH of dementia, hypertension presented to the ED for psychiatric evaluation. Apparently her lime supervisor who is also her nephew sent her to the ED because she was refusing to shower. She did report in the ED that she was afraid of slipping and could not take care of herself. In the ED, she was noted to have right lower extremity cellulitis. She was about to be discharged on oral Keflex when she went into A. fib with RVR. She did have symptoms of shortness of breath and palpitations at that time. She was started on a heparin drip, Cardizem drip and admitted for further evaluation and management. She was continued on Ancef which was eventually transitioned to Keflex for discharge. Her cellulitis progressively improved during her hospitalization. Cardiology was consulted regarding her A. fib with RVR. She was continued on her home dose of metoprolol. Cardiology recommended adding amiodarone by mouth. Patient was noted to be in CHF exacerbation as well. She had an elevated BNP of 14,700 with chest x-ray showing pulmonary vascular congestion. Echocardiogram showed EF 30-35% with mild concentric LVH. She was continued on her home medication of metoprolol and lisinopril. She was started on Lasix 40 mg IV twice a day. She did have elevated troponins of 0.067, 0.056, 0.053 with EKG showing atrial fibrillation with RVR. This was thought to be related to demand ischemia as her troponins were flat. Acute coronary syndrome was ruled out. Cardiology followed the patient throughout her hospitalization and cleared the patient for discharge. Patient was seen and examined. No acute events overnight. Patient reports considerable improvement in her breathing. Patient is able to ambulate to the washroom and back to her chair without much difficulties. Patient reports improvement in her right lower extremity erythema and swelling. She is currently on room air saturating high 90s. States that she is afraid to go back home as she gets better care at [facility]. General: [non toxic], [no distress], [appears at stated age] Derm: [warm], [dry] Head: [atraumatic], [normocephalic], [symmetric] Eyes: [EOMI], [no lid lag], [anicteric sclera] Mouth: [no lip lesion], [mucus membranes moist] Cardiovascular: [S1S2 irregular], [no murmur], [positive DP pulse bilateral], Lungs: [CTA bilateral], [no rhonchi, no rales] , [no accessory muscle use] Abdominal: [soft], [ nontender to palpation], [no guarding], [no appreciable organomegaly] Ext: [no gross muscle atrophy], [1+ LE edema with bilateral erythema], [no contractures] Neuro: [no focal neuro deficits] Psych: [Alert], [oriented], [appropriate affect] Right lower extremity cellulitis Atrial fibrillation with RVR Acute systolic CHF exacerbation Elevated creatinine with unknown baseline Troponin elevation Cellulitis appears to be improving. Patient is afebrile with no leukocytosis. Plans: Continue Keflex for 10 more days. Heart rate irregular around 100 on telemetry. Plans: Patient started on amiodarone by mouth. Eliquis for anticoagulation. Continue home medication of metoprolol. Keep potassium greater than 4 and magnesium greater than 2. Tel emetry monitoring. Follow cardiology consultation. BNP 14,700 with chest x-ray showing pulmonary vascular congestion. Echocardiogram shows EF 30-35% with mild concentric LVH. Plans: Transitioned to Lasix by mouth. Continue beta jason. Continue DAVID inhibitor. Strict intake and output. Daily weights. Creatinine 1.68. Unknown baseline. Suspect component of chronic kidney disease. Plans: Patient will need outpatient monitoring of her renal function.. Avoid nephrotoxins. Troponin 0.067, 0.056, 0.053 with EKG showing atrial fibrillation with RVR. Possible demand ischemia. Troponins flat. Acute coronary syndrome ruled out. [Patient admitted for CHF exacerbation and A. fib with RVR. Cardiology on board, cleared for discharge. Also getting treatment for cellulitis which has been improving. I have asked social work to look into her living situation. Apparently, adult protective services has been notified from the ED. Plans to discharge the patient home if deemed appropriate by case management.] Pertinent Studies: Foot x-ray, chest x-ray, echocardiogram Patient Condition at Discharge: Stable Plan - Discharge Summary Discharge Rx Participant: No New Discharge Prescriptions: New Cephalexin [Keflex] 500 mg PO Q6HR #40 cap Amiodarone [Cordarone] 200 mg PO TID #90 tab Continue Furosemide [Lasix] 40 mg PO AC-BID #60 tab Apixaban [Eliquis] 2.5 mg PO BID #60 tab Metoprolol Succinate [Toprol XL] 100 mg PO DAILY #30 tab Lisinopril [Zestril] 5 mg PO DAILY #30 tab Discharge Medication List Cephalexin [Keflex] 500 mg PO Q6HR #40 cap 09/05/19 [Rx] Amiodarone [Cordarone] 200 mg PO TID #90 tab 09/09/19 [Rx] Apixaban [Eliquis] 2.5 mg PO BID #60 tab 09/09/19 [Rx] Furosemide [Lasix] 40 mg PO AC-BID #60 tab 09/09/19 [Rx] Lisinopril [Zestril] 5 mg PO DAILY #30 tab 09/09/19 [Rx] Metoprolol Succinate [Toprol XL] 100 mg PO DAILY #30 tab 09/09/19 [Rx] Follow up Appointment(s)/Referral(s): Mukund Villatoro MD [STAFF PHYSICIAN] - 09/12/19 12:00 pm (Please bring your insurance card and photo ID with you to appointment.) Eusebio Armstrong MD [STAFF PHYSICIAN] - 09/19/19 2:15 pm [facility] Visiting Nurse, [NON-STAFF] - Patient Instructions/Handouts: A-fib (Atrial Fibrillation) (DC), Cellulitis (ED) Activity/Diet/Wound Care/Special Instructions: Complete antibiotic prescription in full. Follow up with the primary care physician for recheck in 1-2 days. One has been recommended for you. Return to the emergency department for any new, worsening, or concerning symptoms. FU PCP within 3 days of DC. FU Cardiology within 1 week of DC. Take all medications as advised. Discharge Disposition: HOME SELF-CARE
== END 2019-09-09 15:43 | disposition home health service (06) | DRG 602 ==
LOC: EC 21:44 → 3SCARD 09-05 09:52
PROVIDERS: ADMIT Internal Medicine; ATTEND Internal Medicine
DX: L03.115 Cellulitis of right lower limb (principal); I50.23 Acute on chronic systolic (congestive) heart failure; I42.9 Cardiomyopathy, unspecified; I13.0 Hypertensive heart and chronic kidney disease with heart failure and stage 1 through stage 4 chronic kidney disease, or unspecified chronic kidney disease; L89.899 Pressure ulcer of other site, unspecified stage; F03.90 Unspecified dementia, unspecified severity, without behavioral disturbance, psychotic disturbance, mood disturbance, and anxiety; I48.0 Paroxysmal atrial fibrillation; E66.01 Morbid (severe) obesity due to excess calories; Z20.828 Contact with and (suspected) exposure to other viral communicable diseases; I35.0 Nonrheumatic aortic (valve) stenosis; E78.5 Hyperlipidemia, unspecified; N18.9 Chronic kidney disease, unspecified; I87.8 Other specified disorders of veins; R79.89 Other specified abnormal findings of blood chemistry; I25.10 Atherosclerotic heart disease of native coronary artery without angina pectoris; M20.40 Other hammer toe(s) (acquired), unspecified foot; M20.10 Hallux valgus (acquired), unspecified foot; M54.9 Dorsalgia, unspecified; M19.90 Unspecified osteoarthritis, unspecified site; Z68.32 Body mass index [BMI] 32.0-32.9, adult; Z79.01 Long term (current) use of anticoagulants; Z79.899 Other long term (current) drug therapy; Z87.891 Personal history of nicotine dependence
CPT/HCPCS: 36415; 71045; 71046; 80048; 80053; 81003; 83735; 83880; 84100; 84484; 85025; 85610; 85730; 93005; 93306; 96361; 96365; 96366; 96368; 96374; 96376; 99285

== ENCOUNTER 2019-09-16 22:36 | Observation (INO) | payer MEDICARE ==
--- NOTE | 2019-09-16 23:32 | XR ---
EXAMINATION TYPE: XR chest 2V DATE OF EXAM: 09/16/2019 COMPARISON: 09/09/2019 HISTORY: Difficulty breathing TECHNIQUE: FINDINGS: There is some linear infiltrate and atelectasis at the lung bases. There is blunting left c ostophrenic angle. There is pulmonary vascular congestion. The bones are osteopenic. There is thoraco lumbar kyphotic deformity with anterior wedging of lower thoracic vertebra or upper lumbar vertebra. IMPRESSION: Bilateral pleural effusions slightly improved compared to old exam. Mild congestive heart failure worse than old exam.
--- NOTE | 2019-09-17 00:15 | ED ---
SOB HPI - General Chief Complaint: Shortness of Breath Stated Complaint: Diff Breathing Time Seen by Provider: 09/16/19 23:11 Source: patient, EMS Mode of arrival: EMS Limitations: no limitations - History of Present Illness Initial Comments: This patient is an 79-year-old woman who states that she thinks she had a choking episode earlier. She states that earlier a neighbor was over and she believes that the neighbor called EMS because she had a choking episode. She states that she had been unable to catch her breath, but states that everything had resolved and she feels well now. She is denying any chest pain, cough, or dyspnea now. Patient states that she feels at her baseline. MD Complaint: shortness of breath -: unknown Severity scale (1-10): 0 Consistency: now resolved Improves With: nothing Worsens With: nothing Associated Symptoms: denies other symptoms Treatments Prior to Arrival: none - Related Data Previous Rx's Medication Instructions Recorded Cephalexin [Keflex] 500 mg PO Q6HR #40 cap 09/05/19 Amiodarone [Cordarone] 200 mg PO TID #90 tab 09/09/19 Apixaban [Eliquis] 2.5 mg PO BID #60 tab 09/09/19 Furosemide [Lasix] 40 mg PO AC-BID #60 tab 09/09/19 Lisinopril [Zestril] 5 mg PO DAILY #30 tab 09/09/19 Metoprolol Succinate [Toprol XL] 100 mg PO DAILY #30 tab 09/09/19 Allergies Allergy/AdvReac Type Severity Reaction Status Date / Time No Known Allergies Allergy Verified 09/05/19 19:13 Review of Systems ROS Statement: Those systems with pertinent positive or pertinent negative responses have been documented in the HPI. ROS Other: All systems not noted in ROS Statement are negative. Constitutional: Denies: fever Respiratory: Reports: as per HPI, dyspnea. Denies: cough, hemoptysis Cardiovascular: Reports: edema (Chronic). Denies: chest pain, syncope Gastrointestinal: Denies: abdominal pain, vomiting, diarrhea Genitourinary: Denies: dysuria Musculoskeletal: Denies: back pain Skin: Denies: rash Neurological: Denies: headache, weakness Past Medical History Past Medical History: Dementia, Hyperlipidemia, Hypertension, Osteoarthritis (OA) Additional Past Medical History / Comment(s): right shoulder and back pain History of Any Multi-Drug Resistant Organisms: None Reported Past Surgical History: Orthopedic Surgery Past Psychological History: No Psychological Hx Reported Smoking Status: Never smoker Past Alcohol Use History: None Reported Past Drug Use History: None Reported - Past Family History Mother History Unknown: Yes Father History Unknown: Yes General Exam Limitations: no limitations General appearance: alert, in no apparent distress Head exam: Present: atraumatic, normocephalic Eye exam: Present: normal appearance. Absent: scleral icterus, conjunctival injection ENT exam: Present: normal oropharynx Respiratory exam: Present: normal lung sounds bilaterally. Absent: respiratory distress, wheezes, rales, rhonchi, stridor, accessory muscle use, decreased breath sounds Cardiovascular Exam: Present: regular rate, irregular rhythm, normal heart sounds. Absent: systolic murmur, diastolic murmur, rubs, gallop GI/Abdominal exam: Present: soft. Absent: distended, tenderness, guarding, rebound, rigid, mass Extremities exam: Present: pedal edema, other (Chronic venous stasis changes.). Absent: calf tenderness Neurological exam: Present: alert, CN II-XII intact. Absent: oriented X3 (Patient oriented to person and place.), motor sensory deficit Skin exam: Present: warm, dry, intact, normal color. Absent: rash Course Vital Signs 09/16/19 09/17/19 09/17/19 22:48 00:40 02:32 Temperature 97.6 F 98.9 F Pulse Rate 73 81 78 Respiratory 18 16 18 Rate Blood Pressure 98/64 115/85 133/75 O2 Sat by Pulse 96 98 97 Oximetry Medical Decision Making - Lab Data Result diagrams: 09/17/19 00:08 09/17/19 00:08 Lab Results 09/17/19 09/17/19 09/17/19 Range/Units 00:08 00:08 00:08 WBC 6.6 (3.8-10.6) k/uL RBC 5.27 (3.80-5.40) m/uL Hgb 12.8 (11.4-16.0) gm/dL Hct 40.9 (34.0-46.0) % MCV 77.5 L (80.0-100.0) fL MCH 24.3 L (25.0-35.0) pg MCHC 31.3 (31.0-37.0) g/dL RDW 16.2 H (11.5-15.5) % Plt Count 258 (150-450) k/uL Neutrophils % 75 % Lymphocytes % 13 % Monocytes % 7 % Eosinophils % 2 % Basophils % 1 % Neutrophils # 5.0 (1.3-7.7) k/uL Lymphocytes # 0.9 L (1.0-4.8) k/uL Monocytes # 0.4 (0-1.0) k/uL Eosinophils # 0.1 (0-0.7) k/uL Basophils # 0.0 (0-0.2) k/uL Hypochromasia Moderate Anisocytosis Slight Microcytosis Slight PT 10.5 (9.0-12.0) sec INR 1.0 (<1.2) APTT 24.5 (22.0-30.0) sec D-Dimer 1.79 H (<0.60) mg/L FEU Sodium 134 L (137-145) mmol/L Potassium 4.4 (3.5-5.1) mmol/L Chloride 97 L (98-107) mmol/L Carbon Dioxide 28 (22-30) mmol/L Anion Gap 9 mmol/L BUN 40 H (7-17) mg/dL Creatinine 1.90 H (0.52-1.04) mg/dL Est GFR (CKD-EPI)AfAm 28 (>60 ml/min/1.73 sqM) Est GFR (CKD-EPI)NonAf 24 (>60 ml/min/1.73 sqM) Glucose 104 H (74-99) mg/dL Plasma Lactic Acid Alberto (0.7-2.0) mmol/L Calcium 8.9 (8.4-10.2) mg/dL Magnesium 2.3 (1.6-2.3) mg/dL Total Bilirubin 0.6 (0.2-1.3) mg/dL AST 20 (14-36) U/L ALT 13 (4-34) U/L Alkaline Phosphatase 83 (38-126) U/L Troponin I (0.000-0.034) ng/mL NT-Pro-B Natriuret Pep pg/mL Total Protein 6.5 (6.3-8.2) g/dL Albumin 3.8 (3.5-5.0) g/dL 09/17/19 09/17/19 09/17/19 Range/Units 00:08 00:08 00:08 WBC (3.8-10.6) k/uL RBC (3.80-5.40) m/uL Hgb (11.4-16.0) gm/dL Hct (34.0-46.0) % MCV (80.0-100.0) fL MCH (25.0-35.0) pg MCHC (31.0-37.0) g/dL RDW (11.5-15.5) % Plt Count (150-450) k/uL Neutrophils % % Lymphocytes % % Monocytes % % Eosinophils % % Basophils % % Neutrophils # (1.3-7.7) k/uL Lymphocytes # (1.0-4.8) k/uL Monocytes # (0-1.0) k/uL Eosinophils # (0-0.7) k/uL Basophils # (0-0.2) k/uL Hypochromasia Anisocytosis Microcytosis PT (9.0-12.0) sec INR (<1.2) APTT (22.0-30.0) sec D-Dimer (<0.60) mg/L FEU Sodium (137-145) mmol/L Potassium (3.5-5.1) mmol/L Chloride (98-107) mmol/L Carbon Dioxide (22-30) mmol/L Anion Gap mmol/L BUN (7-17) mg/dL Creatinine (0.52-1.04) mg/dL Est GFR (CKD-EPI)AfAm (>60 ml/min/1.73 sqM) Est GFR (CKD-EPI)NonAf (>60 ml/min/1.73 sqM) Glucose (74-99) mg/dL Plasma Lactic Acid Alberto 1.0 (0.7-2.0) mmol/L Calcium (8.4-10.2) mg/dL Magnesium (1.6-2.3) mg/dL Total Bilirubin (0.2-1.3) mg/dL AST (14-36) U/L ALT (4-34) U/L Alkaline Phosphatase (38-126) U/L Troponin I 0.020 (0.000-0.034) ng/mL NT-Pro-B Natriuret Pep 28889 pg/mL Total Protein (6.3-8.2) g/dL Albumin (3.5-5.0) g/dL - EKG Data -: EKG Interpreted by Me EKG shows normal: intervals (QTC 473 ms, prolonged. QRS duration 112 ms.), QRS complexes (Incomplete left bundle branch block.) Rate: normal (Rate 86 bpm) Interpretation: other (Underlying rhythm appears to be atrial fibrillation.) Disposition Clinical Impression: Dyspnea, Elevated d-dimer Disposition: ADMITTED IP TO THIS HOSP Condition: Fair Is patient prescribed a controlled substance at d/c from ED?: No
[2019-09-17 00:27] LABS: Anisocytosis Slight; Basophils % (A) 1 %; Eosinophils # (A) 0.1 k/uL (0-0.7); Eosinophils % (A) 2 %; HCT 40.9 % (34.0-46.0); HGB 12.8 gm/dL (11.4-16.0); Hypochromasia Moderate; Lymphocytes # (A) 0.9 k/uL (1.0-4.8); Lymphocytes % (A) 13 %; MCH 24.3 pg (25.0-35.0); MCHC 31.3 g/dL (31.0-37.0); MCV 77.5 fL (80.0-100.0); Mean Platelet Volume 7.4; Microcytosis Slight; Monocytes # (A) 0.4 k/uL (0-1.0); Monocytes % (A) 7 %; Neutrophils % (A) 75 %; Platelet Count 258 k/uL (150-450); RBC 5.27 m/uL (3.80-5.40); RDW 16.2 % (11.5-15.5); WBC 6.6 k/uL (3.8-10.6)
[2019-09-17 00:39] LABS: Albumin 3.8 g/dL (3.5-5.0); Calcium 8.9 mg/dL (8.4-10.2); Magnesium 2.3 mg/dL (1.6-2.3); Potassium 4.4 mmol/L (3.5-5.1); Total Bilirubin 0.6 mg/dL (0.2-1.3); Total Protein 6.5 g/dL (6.3-8.2)
[2019-09-17 00:42] LABS: Partial Thromboplastin Time 24.5 sec (22.0-30.0); Prothrombin Time 10.5 sec (9.0-12.0)
[2019-09-17 01:02] LABS: D-Dimer 1.79 mg/L FEU (<0.60)
[2019-09-17] MEDS ORDERED: ENOXAPARIN 80 MG/0.8 ML SYRINGE SQ STA (01:36)
[2019-09-17] MEDS ORDERED: NALOXONE 0.4 MG/ML 1 ML VIAL IV PRN (03:31)
[2019-09-17] MEDS: SODIUM CHLORIDE 0.9% 1,000 ML IV SCH (04:17)
--- NOTE | 2019-09-17 04:46 | P.HPIM ---
History of Present Illness H&P Date: 09/17/19 The patient is an 79-year-old female with a PMH of dementia, chronic systolic CHF, A. fib on Eliquis, and hypertension who was sent into the ED by either her nephew or her neighbor for possibly concerns regarding a choking episode. This is ascertained from the chart since the patient is unable to recall and states that she does not know why she is at the hospital. As per the ED documentation, the patient had reported that she had shortness of breath due to a choking episode which had subsequently resolved. At time of interview, the patient reported feeling well and denied any active complaints. She denied chest pain, shortness of breath or fever, chills, nausea, vomiting, cough, abdominal pain, diarrhea, or lower extremity swelling or pain. The patient states that she lives in a mobile home by herself and has some help with her ADLs. She is however a somewhat poor historian and is unable to specify how she takes care of certain things like cooking and cleaning and shopping. As per the ED physician, the family is concerned for her safety and feels that due to her gradually wors ening dementia that she would benefit from long-term care facility. Attempted to reach nephew Garcia ([phone]) though went straight to [facility]. Of note, the patient was recently admitted to the hospital for A. fib, CHF, and cellulitis and was discharged on 09/08 to home. She underwent an extensive evaluation in the emergency room with chest x-ray showing mild CHF, with EKG showing A. fib with PVCs at 86 bpm with incomplete right bundle branch block and prolonged QTc at 473. Laboratory evaluation revealed a sodium of 134, chloride 97, BUN 40, creatinine 1.90, glucose 104, troponin 0.020, BNP 12,700, WBC count 6.6, hemoglobin 12.8, and platelets 258. Past Medical History Past Medical History: Dementia, Hyperlipidemia, Hypertension, Osteoarthritis (OA) Additional Past Medical History / Comment(s): right shoulder and back pain History of Any Multi-Drug Resistant Organisms: None Reported Past Surgical History: Orthopedic Surgery Past Psychological History: No Psychological Hx Reported Smoking Status: Never smoker Past Alcohol Use History: None Reported Past Drug Use History: None Reported - Past Family History Mother History Unknown: Yes Father History Unknown: Yes Medications and Allergies Home Medications Medication Instructions Recorded Confirmed Type Cephalexin [Keflex] 500 mg PO Q6HR #40 cap 09/05/19 Rx Amiodarone [Cordarone] 200 mg PO TID #90 tab 09/09/19 Rx Apixaban [Eliquis] 2.5 mg PO BID #60 tab 09/09/19 Rx Furosemide [Lasix] 40 mg PO AC-BID #60 tab 09/09/19 Rx Lisinopril [Zestril] 5 mg PO DAILY #30 tab 09/09/19 Rx Metoprolol Succinate [Toprol XL] 100 mg PO DAILY #30 tab 09/09/19 Rx Allergies Allergy/AdvReac Type Severity Reaction Status Date / Time No Known Allergies Allergy Verified 09/05/19 19:13 Physical Exam Vitals: Vital Signs Temp Pulse Resp BP Pulse Ox 09/17/19 02:32 98.9 F 78 18 133/75 97 09/17/19 00:40 81 16 115/85 98 09/16/19 22:48 97.6 F 73 18 98/64 96 Intake and Output 09/16/19 09/16/19 09/17/19 14:59 22:59 06:59 Other: Weight 87.997 kg General: non toxic, no distress, appears at stated age, obese Derm: no unusual rashes/lesions no unusual ecchymoses, warm, dry Head: atraumatic, normocephalic, symmetric Eyes: EOMI, no lid lag, anicteric sclera, pupils equal round reactive to light ENT: Nose and ears atraumatic, no thrush, no pharyngeal erythema Neck: No thyromegaly, no cervical lymphadenopathy, trachea midline, supple Mouth: no lip lesion, mucus membranes moist Cardiovascular: S1S2 reg, no murmur, positive posterior tibial pulse bilateral, no edema, capillary refill less than 2 seconds Lungs: CTA bilateral, no rhonchi, no rales , no accessory muscle use Abdominal: soft, nontender to palpation, no guarding, no appreciable organomegaly, normal bowel sounds Ext: Bilateral lower extremity chronic venous stasis changes, muscle strength 4 out of 5 in all 4 extremities grossly, no contractures, Neuro: CN II-XI grossly intact, light touch intact all 4 extremities, finger to nose within normal limits, Psych: Alert, oriented to person, place, and time, though unable to recall why she is in the hospital, appropriate affect Results CBC & Chem 7: 09/17/19 00:08 09/17/19 00:08 Labs: Abnormal Lab Results - Last 24 Hours (Table) 09/17/19 09/17/19 09/17/19 Range/Units 00:08 00:08 00:08 MCV 77.5 L (80.0-100.0) fL MCH 24.3 L (25.0-35.0) pg RDW 16.2 H (11.5-15.5) % Lymphocytes # 0.9 L (1.0-4.8) k/uL D-Dimer 1.79 H (<0.60) mg/L FEU Sodium 134 L (137-145) mmol/L Chloride 97 L (98-107) mmol/L BUN 40 H (7-17) mg/dL Creatinine 1.90 H (0.52-1.04) mg/dL Glucose 104 H (74-99) mg/dL Assessment and Plan Plan: Dementia with failure to thrive -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 Chronic conditions: A. fib, CHF, hypertension, hyperlipidemia -Continue with home meds DVT prophylaxis -Eliquis The patient is admitted with an anticipated less than 2 midnight stay for evaluation of failure to thrive CODE STATUS: Full Code Discussed with: Patient Anticipated discharge date: 1-[address]: SNF A total of 35 minutes was spent on the care of this complex patient more than 50% of the time was spent in counseling and care coordination.
[2019-09-17] MEDS ORDERED: HEPARIN SODIUM,PORCINE 5,000 UNIT/ML 1 ML VIAL SQ SCH (09:00)
[2019-09-17] MEDS ORDERED: APIXABAN 2.5 MG TABLET PO SCH (09:00)
--- NOTE | 2019-09-17 09:12 | NM ---
EXAMINATION TYPE: NM pul vent and perfuse DATE OF EXAM: 09/17/2019 COMPARISON: Chest x-ray of 09/16/2019 at 11:27 PM HISTORY: Difficulty breathing TECHNIQUE: Utilizing inhalation of 36.1 mCi Tc 99m DTPA aerosol and intravenous injection of 5.3 mCi of Tc 99m MAA, ventilation and perfusion images are acquired post injection in multiple projections. FINDINGS: Matched defects on the left relates to a small pleural effusion as well as matched defect at the righ t costophrenic angle relating to a trace pleural effusion. Ventilation defects of the lung apices are greater than perfusion defects. However there is a perfusion defect of the left lateral view of the posterior left lung is greater than a ventilation defect. IMPRESSION: Intermediate probability for pulmonary embolus with mismatch defect in the left posterior lower lobe. Suboptimal ventilation of the lung apices and bilateral pleural effusions, left greater than right.
[2019-09-17] MEDS: METOPROLOL SUCCINATE (ER) 100 MG TAB.ER.24H PO SCH (09:30)
[2019-09-17] MEDS: LISINOPRIL 5 MG TAB PO SCH (09:30)
[2019-09-17] MEDS: AMIODARONE 200 MG TAB PO SCH ×3 (09:30→22:33)
--- NOTE | 2019-09-17 15:41 | P.PN ---
Progress Note - Text Progress Note Date: 09/17/19 Patient was seen. Patient reports feeling unsafe at home. PT and OT has evaluated the patient and recommends subacute rehab. Social work is onboard. VQ scan indeterminate probability of PE with ventilation/perfusion defect. We will increase her Eliquis to therapeutic dose for treatment of PE. Continue home medications. Patient discharged with Keflex for treatment of cellulitis. Treatment is near completion. DC antibiotics.
[2019-09-17] MEDS: APIXABAN 5 MG TAB PO SCH (22:33)
[2019-09-18] MEDS: SODIUM CHLORIDE 0.9% 1,000 ML IV SCH (01:43)
[2019-09-18 08:29] VITALS: RESP 16
[2019-09-18] MEDS: APIXABAN 5 MG TAB PO SCH ×2 (08:36→20:26)
[2019-09-18] MEDS: AMIODARONE 200 MG TAB PO SCH ×3 (08:36→20:27)
[2019-09-18] MEDS: METOPROLOL SUCCINATE (ER) 100 MG TAB.ER.24H PO SCH (08:36)
[2019-09-18] MEDS: LISINOPRIL 5 MG TAB PO SCH (08:36)
[2019-09-18 08:56] LABS: Anisocytosis Slight; Basophils % (A) 1 %; Eosinophils # (A) 0.2 k/uL (0-0.7); Eosinophils % (A) 3 %; HCT 41.9 % (34.0-46.0); HGB 12.6 gm/dL (11.4-16.0); Hypochromasia Moderate; Lymphocytes % (A) 17 %; MCH 23.6 pg (25.0-35.0); MCHC 30.2 g/dL (31.0-37.0); MCV 78.2 fL (80.0-100.0); Mean Platelet Volume 7.6; Microcytosis Slight; Monocytes # (A) 0.4 k/uL (0-1.0); Monocytes % (A) 7 %; Neutrophils # (A) 4.2 k/uL (1.3-7.7); Neutrophils % (A) 71 %; Platelet Count 234 k/uL (150-450); RBC 5.36 m/uL (3.80-5.40); RDW 16.8 % (11.5-15.5)
[2019-09-18 09:08] LABS: Albumin 3.9 g/dL (3.5-5.0); Calcium 8.9 mg/dL (8.4-10.2); Total Bilirubin 0.7 mg/dL (0.2-1.3); Total Protein 6.7 g/dL (6.3-8.2)
--- NOTE | 2019-09-18 10:37 | P.DS ---
Providers Date of admission: 09/17/19 03:31 Expected date of discharge: 09/18/19 Attending physician: Luz Elena Pinedo MD Primary care physician: Stated None Hospital Course: The patient is an 79-year-old female with a PMH of dementia, chronic systolic CHF, A. fib on Eliquis, and hypertension who was sent into the ED by either her nephew or her neighbor for possibly concerns regarding a choking episode. This is ascertained from the chart since the patient is unable to recall and states that she does not know why she is at the hospital. As per the ED documentation, the patient had reported that she had shortness of breath due to a choking episode which had subsequently resolved. At time of interview, the patient reported feeling well and denied any active complaints. She denied chest pain, shortness of breath or fever, chills, nausea, vomiting, cough, abdominal pain, diarrhea, or lower extremity swelling or pain. The patient states that she lives in a mobile home by herself and has some help with her ADLs. She is however a somewhat poor historian and is unable to specify how she takes care of certain things like cooking and cleaning and shopping. As per the ED physician, the family is concerned for her safety and feels that due to her gradually worsening dementia that she would benefit from long-term care facility. Attempted to reach nephew Garcia ([phone]) though went straight to [facility]. Of note, the patient was recently admitted to the hospital for A. fib, CHF, and cellulitis and was discharged on 09/08 to home. She underwent an extensive evaluation in the emergency room with chest x-ray showing mild CHF, with EKG showing A. fib with PVCs at 86 bpm with incomplete right bundle branch block and prolonged QTc at 473. Laboratory evaluation revealed a sodium of 134, chloride 97, BUN 40, creatinine 1.90, glucose 104, troponin 0.020, BNP 12,700, WBC count 6.6, hemoglobin 12.8, and platelets 258. PT and OT was consulted along with social work for possible placement. Patient was accepted to [facility]. Given her elevated d-dimer, VQ scan was performed to rule out PE. VQ scan showed intermediate probability of pulmonary embolus. Patient was noted to already be on Eliquis 2.5 mg by mouth twice a day for prophylaxis in A. fib. Her Eliquis dosing was increased from 2.5-5 mg by mouth twice a day. Patient was noted to have a prerenal azotemia with BUN of 40 and creatinine 1.9 on admission. Her Lasix was initially held and BMP was repeated. Creatinine on the following day was 1.5 to which was consistent with her renal function at the time of discharge during her previous admission. She was restarted on lisinopril and Lasix home dose. Patient was seen and examined. No acute events overnight. Patient reports being afraid to go home as she does not have the extra help that she needs. She denies any chest pain, shortness of breath or palpitations. No nausea or vomiting. No fever or chills. General: [non toxic], [no distress], [appears at stated age] Derm: [warm], [dry] Head: [atraumatic], [normocephalic], [symmetric] Eyes: [EOMI], [no lid lag], [anicteric sclera] Mouth: [no lip lesion], [mucus membranes moist] Cardiovascular: [S1S2 irregular], [no murmur], [positive DP pulse bilateral], Lungs: [CTA bilateral], [no rhonchi, no rales] , [no accessory muscle use] Abdominal: [soft], [ nontender to palpation], [no guarding], [no appreciable organomegaly] Ext: [no gross muscle atrophy], [1+ LE edema with bilateral erythema], [no contractures] Neuro: [no focal neuro deficits] Psych: [Alert], [oriented], [appropriate affect] Elevated d-dimer with intermediate probability of PE Dementia with failure to thrive Chronic kidney disease stage III Chronic: A. fib, CHF, hypertension, hyperlipidemia VQ scan shows intermediate probability of PE. We will increase her Eliquis dosing for therapeutic treatment of PE. Patient appears extremely happy to be going to [facility] [place] today. Her renal function is at baseline. She'll be restarted on lisinopril and Lasix. Continue metoprolol for A. fib and history of CHF. Continue amiodarone for A. fib. Patient advised to follow-up with PCP within 3 days of discharge. This complex discharge took about 35 minutes to complete. Health Concerns: VQ scan, chest x-ray Patient Condition at Discharge: Stable Plan - Discharge Summary Discharge Rx Participant: No New Discharge Prescriptions: New Apixaban [Eliquis] 5 mg PO BID tab Continue Amiodarone [Cordarone] 200 mg PO TID #90 tab Furosemide [Lasix] 40 mg PO AC-BID #60 tab Metoprolol Succinate [Toprol XL] 100 mg PO DAILY #30 tab Lisinopril [Zestril] 5 mg PO DAILY #30 tab Discontinued Apixaban [Eliquis] 2.5 mg PO BID #60 tab Discharge Medication List Amiodarone [Cordarone] 200 mg PO TID #90 tab 09/09/19 [Rx] Furosemide [Lasix] 40 mg PO AC-BID #60 tab 09/09/19 [Rx] Lisinopril [Zestril] 5 mg PO DAILY #30 tab 09/09/19 [Rx] Metoprolol Succinate [Toprol XL] 100 mg PO DAILY #30 tab 09/09/19 [Rx] Apixaban [Eliquis] 5 mg PO BID tab 09/18/19 [Rx] Follow up Appointment(s)/Referral(s): None,Stated [Primary Care Provider] - 1-2 days Activity/Diet/Wound Care/Special Instructions: Diet: Cardiac Follow-up PCP within 3 days of discharge. Take all medications as advised. Discharge Disposition: TRANSFER TO SNF/ECF
[2019-09-18] MEDS: FUROSEMIDE 40 MG TAB PO SCH ×2 (15:20→15:26)
[2019-09-18] MEDS ORDERED: MELATONIN 3 MG TABLET PO SCH (21:00)
[2019-09-19] MEDS: SODIUM CHLORIDE 0.9% 1,000 ML IV SCH (04:50)
[2019-09-19] MEDS: FUROSEMIDE 40 MG TAB PO SCH ×2 (07:47→15:28)
[2019-09-19] MEDS: METOPROLOL SUCCINATE (ER) 100 MG TAB.ER.24H PO SCH (07:47)
[2019-09-19] MEDS: APIXABAN 5 MG TAB PO SCH (07:47)
[2019-09-19] MEDS: AMIODARONE 200 MG TAB PO SCH ×2 (07:47→15:28)
[2019-09-19] MEDS: LISINOPRIL 5 MG TAB PO SCH (07:47)
[2019-09-19 08:30] VITALS: TEMP 98.4
[2019-09-19 15:22] VITALS: BP 129/80; PULSE 79
--- NOTE | 2019-09-19 15:48 | P.PN ---
Subjective Progress Note Date: 09/19/19 Principal diagnosis: Placement Patient was seen and examined. No acute events overnight. Her condition is unchanged since yesterday. She denies any chest pain, shortness breath or palpitations. No nausea or vomiting. No fever or chills. Objective - Vital Signs Vital signs: Vital Signs Temp 98.4 F 09/19/19 08:30 Pulse 79 09/19/19 15:21 Resp 16 09/19/19 08:30 BP 129/80 09/19/19 15:21 Pulse Ox 97 09/19/19 08:30 Intake & Output 09/18/19 09/19/19 09/19/19 18:59 06:59 18:59 Intake Total 120 Output Total 1 Balance 120 -1 Weight 93.1 kg Intake: Oral 120 Output: Stool 1 Other: Voiding Method Toilet Toilet # Voids 3 3 2 # Bowel Movements 1 - Exam General: [non toxic], [no distress], [appears at stated age] Derm: [warm], [dry] Head: [atraumatic], [normocephalic], [symmetric] Eyes: [EOMI], [no lid lag], [anicteric sclera] Mouth: [no lip lesion], [mucus membranes moist] Cardiovascular: [S1S2 irregular], [no murmur], [positive DP pulse bilateral], Lungs: [CTA bilateral], [no rhonchi, no rales] , [no accessory muscle use] Abdominal: [soft], [ nontender to palpation], [no guarding], [no appreciable organomegaly] Ext: [no gross muscle atrophy], [1+ LE edema with bilateral erythema], [no contractures] Neuro: [no focal neuro deficits] Psych: [Alert], [oriented], [appropriate affect] - Labs CBC & Chem 7: 09/18/19 07:54 09/18/19 07:54 Assessment and Plan Assessment: Elevated d-dimer with intermediate probability of PE Dementia with failure to thrive Chronic kidney disease stage III Chronic: A. fib, CHF, hypertension, hyperlipidemia VQ scan shows intermediate probability of PE. We will increase her Eliquis dosing for therapeutic treatment of PE. Patient appears extremely happy to be jessica ruffin to [facility] [place] today. Her renal function is at baseline. She'll be restarted on lisinopril and Lasix. Continue metoprolol for A. fib and history of CHF. Continue amiodarone for A. fib. Patient advised to follow-up with PCP within 3 days of discharge.
== END 2019-09-19 17:28 ==
LOC: EC 22:36 → 1SOBS 09-17 03:31 → 4SSUR 09-17 21:54
PROVIDERS: ADMIT Internal Medicine; ATTEND Internal Medicine
DX: R79.89 Other specified abnormal findings of blood chemistry (principal); R06.02 Shortness of breath; F03.90 Unspecified dementia, unspecified severity, without behavioral disturbance, psychotic disturbance, mood disturbance, and anxiety; R62.7 Adult failure to thrive; N17.9 Acute kidney failure, unspecified; I13.0 Hypertensive heart and chronic kidney disease with heart failure and stage 1 through stage 4 chronic kidney disease, or unspecified chronic kidney disease; I50.22 Chronic systolic (congestive) heart failure; N18.3 Chronic kidney disease, stage 3 (moderate); I44.7 Left bundle-branch block, unspecified; E78.5 Hyperlipidemia, unspecified; M19.90 Unspecified osteoarthritis, unspecified site; I48.20 Chronic atrial fibrillation, unspecified; R09.89 Other specified symptoms and signs involving the circulatory and respiratory systems; I49.3 Ventricular premature depolarization; I87.8 Other specified disorders of veins; L03.90 Cellulitis, unspecified; Z79.01 Long term (current) use of anticoagulants; Z79.899 Other long term (current) drug therapy; Z03.818 Encounter for observation for suspected exposure to other biological agents ruled out
CPT/HCPCS: 96365; 96372; 99285; 36415; 93005; 97116 ×2; 97162; 97535; 97166; 85379; 83880; 80053 ×2; 83605; 83735; 84484; 85025 ×2; 85610; 85730; 71046; 78582; G0378 ×4; U0003; A9540; A9567; J0696; J1650

== ENCOUNTER 2021-06-09 07:08 | Emergency (ER) | payer MEDICARE, OTHER ==
--- NOTE | 2021-06-09 07:41 | ED ---
General Adult HPI - General Chief complaint: Fall Stated complaint: Fall Time Seen by Provider: 06/09/21 07:25 Source: patient, RN notes reviewed, old records reviewed Mode of arrival: EMS Limitations: no limitations - History of Present Illness Initial comments: 81-year-old female presents from [facility] for a fall today landing on her knees. EMS stated that she did not hit her head. No loss of consciousness. Patient does not remember having a fall today and doesn't know why they sent her. She is alert and oriented 3. She does have bruising to bilateral knees but denies any other pain. She does have a history of dementia, hypertension and osteoarthritis. She states that her knees always hurt. She denies any hip pain, back pain, neck pain or headache. Location: lower extremity (bilateral knees) Severity scale (1-10): 5 Consistency: intermittent Improves with: immobilization Worsens with: movement, other (palpation) Associated Symptoms: denies other symptoms Treatments Prior to Arrival: none - Related Data Home Medications Medication Instructions Recorded Confirmed Acetaminophen Tab [Tylenol Tab] 500 - 1,000 mg PO Q4H PRN MDD 8 06/09/21 06/09/21 tabs Apixaban [Eliquis] 2.5 mg PO BID 06/09/21 06/09/21 Cholecalciferol (Vitamin D3) 125 mcg PO DAILY 06/09/21 06/09/21 [Vitamin D3 (125 MCG = 5,000 IU)] Clotrimazole [Lotrimin AF] 1 applic TOPICAL BID 06/09/21 06/09/21 LORazepam [Ativan] 0.25 mg PO BID PRN 06/09/21 06/09/21 Lidocaine 5% Patch [Lidoderm] 1 patch TOPICAL DAILY 06/09/21 06/09/21 Magnesium Hydroxide [Milk of 2,400 mg PO DAILY PRN 06/09/21 06/09/21 Magnesia] Memantine [Namenda] 10 mg PO BID 06/09/21 06/09/21 Menthol [Biofreeze] 1 applic TOPICAL QID PRN 06/09/21 06/09/21 Nystatin 100,000 Unit/gm Powd 1 applic TOPICAL BID 06/09/21 06/09/21 [Mycostatin Powder] Potassium Chloride [Klor-Con M10] 10 meq PO BID 06/09/21 06/09/21 QUEtiapine [SEROquel] 50 mg PO HS 06/09/21 06/09/21 SILVER sulfADIAZINE CREAM 1 applic TOPICAL DAILY 06/09/21 06/09/21 [Silvadene Cream] Torsemide [Demadex] 40 mg PO DAILY 06/09/21 06/09/21 metOLazone 2.5 mg PO Q48H 06/09/21 06/09/21 Previous Rx's Medication Instructions Recorded Metoprolol Succinate [Toprol XL] 100 mg PO DAILY #30 tab 09/09/19 Allergies Allergy/AdvReac Type Severity Reaction Status Date / Time No Known Allergies Allergy Verified 06/09/21 09:19 Review of Systems ROS Statement: Those systems with pertinent positive or pertinent negative responses have been documented in the HPI. ROS Other: All systems not noted in ROS Statement are negative. Past Medical History Past Medical History: Dementia, Hyperlipidemia, Hypertension, Osteoarthritis (OA) Additional Past Medical History / Comment(s): right shoulder and back pain History of Any Multi-Drug Resistant Organisms: None Reported Past Surgical History: Orthopedic Surgery Past Psychological History: No Psychological Hx Reported Past Alcohol Use History: None Reported Past Drug Use History: None Reported - Past Family History Mother History Unknown: Yes Father History Unknown: Yes General Exam Limitations: no limitations General appearance: alert, in no apparent distress Head exam: Present: atraumatic, normocephalic, normal inspection Eye exam: Present: normal appearance. Absent: scleral icterus, conjunctival injection, periorbital swelling, periorbital tenderness ENT exam: Present: mucous membranes dry Neck exam: Absent: tenderness, meningismus, lymphadenopathy Respiratory exam: Present: normal lung sounds bilaterally. Absent: respiratory distress, accessory muscle use Cardiovascular Exam: Present: regular rate GI/Abdominal exam: Present: soft. Absent: distended, tenderness Left Knee exam: Present: tenderness, swelling, ecchymosis, full knee extension. Absent: erythema Neurovascular tendon exam: Absent: abnormal cap refill, extremity cold to touch, pallor Right Knee exam: Present: tenderness, swelling, ecchymosis, full knee extension Neurovascular tendon exam: Present: no vascular compromise. Absent: abnormal cap refill, extremity cold to touch, pallor Neurological exam: Present: alert, oriented X3 Psychiatric exam: Present: normal affect, normal mood Skin exam: Present: warm, dry, normal color, other (dried flaking skin to bilateral lower extremities and feet). Absent: cyanosis, diaphoretic Course Vital Signs 06/09/21 06/09/21 07:12 09:22 Temperature 97.8 F 97.3 F L Pulse Rate 94 83 Respiratory 17 12 Rate Blood Pressure 159/110 133/85 O2 Sat by Pulse 98 93 L Oximetry Medical Decision Making - Medical Decision Making Patient sent from [facility] after falling to her knees today, complaining of bilateral knee pain. Upon exam patient also complained of right hip pain. X-ray of the right hip and pelvis show no fracture or dislocation. X-ray bilateral knees show no acute fracture or dislocation. There is bruising noted to bilateral lower extremities distal to patella. The patient states that she did not hit her head but she does not remember a fall. She is on eliquis with a history of dementia therefore CT of the brain and C-spine were performed and showed age-related changes without intracranial process. There is no evidence of acute cervical fracture. Vital signs are stable. Patient will be sent back to [facility] for continuation of care. She was directed to use a walker with assistance with ambulation. Follow-up with her primary care doctor. Disposition Clinical Impression: Fall Disposition: HOME SELF-CARE Condition: Good Instructions (If sedation given, give patient instructions): Fall Prevention for Older Adults (ED), Fall Prevention (ED) Additional Instructions: Get assistance with ambulation and use a walker. Tylenol as needed for pain. Follow-up with your doctor this week. Return to the emergency room if any new or concerning symptoms. Is patient prescribed a controlled substance at d/c from ED?: No Referrals: Manuel Churchill MD [Primary Care Provider] - 1-2 days Time of Disposition: 09:17
[2021-06-09] MEDS ORDERED: ACETAMINOPHEN TAB 325 MG TAB PO STA (07:49)
--- NOTE | 2021-06-09 08:27 | XR ---
EXAMINATION TYPE: XR Hip Complete RT, XR pelvis AP view DATE OF EXAM: 06/09/2021 CLINICAL HISTORY: pain TECHNIQUE: AP and frogleg views of the right hip are obtained. Single view of the pelvis is also sub mitted. COMPARISON: None. FINDINGS: There is no acute fracture/dislocation evident. The joint space appears moderately narro wed. The overlying soft tissue appears unremarkable. IMPRESSION: 1. There is no acute fracture or dislocation. ICD 10 NO FRACTURE, INITIAL EVALUATION
--- NOTE | 2021-06-09 08:28 | XR ---
EXAMINATION TYPE: XR knee complete bilateral DATE OF EXAM: 06/09/2021 CLINICAL HISTORY: pain TECHNIQUE: Three views of the bilateral knees are obtained. COMPARISON: None. FINDINGS: There is no acute fracture/dislocation. The tri-compartment joint spaces appear moderatel y narrowed. The overlying soft tissue appears unremarkable. IMPRESSION: There is no acute fracture or dislocation.ICD 10 NO FRACTURE, INITIAL EVALUATION
--- NOTE | 2021-06-09 08:57 | CT ---
EXAMINATION TYPE: CT brain dione monae con DATE OF EXAM: 06/09/2021 COMPARISON: None HISTORY: Fall CT DLP: 1532.[address] of the brain was performed. The ventricles, basal cisterns and sulci overlying the cerebral convexities demonstrate mildly enlarg ement. There is no evidence for intracranial hemorrhage or sulcal effacement. There is decreased attenuatio n about the periventricular white matter and deep white matter of both cerebral hemispheres, compatib le with chronic small vessel ischemia. No mass effects are seen. If symptoms persist consider MRI. Osseous calvarium is intact. IMPRESSION: 1. Age related atrophic and chronic small vessel ischemic change without acute intracranial process seen at this time. CT Cervical Spine: Unenhanced CT of the cervical spine was performed with bone and soft tissue window settings submitted . Coronal and sagittal reconstruction is obtained. There is normal alignment and prevertebral soft tissues. No evidence for acute cervical fracture . Scattered degenerative disc disease and spondylosis. Biapical scarring. IMPRESSION: 1. No evidence for acute fracture or subluxation of the cervical spine.
[2021-06-09 09:23] VITALS: BP 133/85; PULSE 83; RESP 12; TEMP 97.3
== END 2021-06-09 10:00 | disposition home or self-care (01) ==
LOC: EC 07:08
DX: I10 Essential (primary) hypertension (principal); F03.90 Unspecified dementia, unspecified severity, without behavioral disturbance, psychotic disturbance, mood disturbance, and anxiety; S80.00XA Contusion of unspecified knee, initial encounter; W19.XXXA Unspecified fall, initial encounter
CPT/HCPCS: 70450; 72125; 72170; 73502; 99284